=== PATIENT | male | born 1940 | race Caucasian/White ===

== ENCOUNTER 2023-10-26 11:47 | Outpatient (RCR) | payer MEDICARE, SELFPAY | END 2023-10-27 07:42 | disposition home or self-care (01) | LOC: RPT 11:47 | PROVIDERS: ATTENDING PHYSICIAN Family Medicine | DX: I89.0 Lymphedema, not elsewhere classified (principal); Z73.6 Limitation of activities due to disability | CPT/HCPCS: 97140; 97535 ==

== ENCOUNTER 2024-05-26 15:03 | Emergency (ER) | payer MEDICARE, SELFPAY ==
[2024-05-26 15:05] VITALS: BP 141/73
--- NOTE | 2024-05-26 15:58 | ED.GENMED ---
History of Present Illness
General
Chief Complaint: Back Pain
Time Seen by Provider: 05/26/24 15:58
History of Present Illness
History of Present Illness:
TIME OF INITIAL ENCOUNTER: 4 PM
HPI: Patient presents due to right-sided low back pain over the last few days without urinary complaints. There is been no trauma. He started having issues with scoliosis 25 years ago[address] Dailey in the past however given his advanced age was
recommended no further intervention. The pain has more recently worsened.
EXAM:
GENERAL: Well appearing in mild distress, very pleasant
HEENT: Moist oral mucosa
BACK: Marked scoliosis noted, some vague discomfort with palpation over the right CVA
NEUROLOGIC: Excellent strength all extremities, no obvious coordination deficits
PSYCHIATRIC: Appropriate mental status, normal insight and judgement
EXTREMITIES: Nontender, no edema, moves all extremities equally
SKIN: No rash, no lesions
NUMBER AND COMPLEXITY OF PROBLEMS ADDRESSED AT THE ENCOUNTER
� Chronic conditions affecting care: CAD, high blood pressure, constipation, migraines
� Acute Exacerbation and/or Progression of Chronic Illness: This is an acute worsening of chronic problem
� Differential Diagnosis includes: Worsening scoliosis, compression fractures,
AMOUNT AND/OR COMPLEXITY OF DATA TO BE REVIEWED AND ANALYZED
� I performed an independent evaluation of and my interpretation is:
EKG:
CT:
X-rays: X-rays show severe scoliosis along with compression of the vertebral bodies
Laboratory Studies:
Other:
� Review of other/old records: I reviewed records, the patient was admitted here 1 year ago with failure to thrive
� Clinical information was obtained by an independent historian: I spoke to the at bedside
� Prescriptions/Medications Considered but not given:
� Further testing considered but not performed:
RISK OF COMPLICATIONS AND/OR MORBIDITY OR MORTALITY OF PATIENT MANAGEMENT
� Social determinants of health affecting care: Lives at home
� Discussion with other providers:
� Escalation of care including admission/observation vs risk of discharge considered: The patient was given a dose of Vicodin and was observed here.
ANY OTHER UPDATES:
6:15 PM: On reassessment, patient feels markedly improved. Will give very short course of narcotic analgesia and recommended to try MiraLAX to help prevent constipation as well. I suggest that he consider following up with Dr. Dailey again.
Past History
Past History
ED Past Medical History: CAD, HTN, [place], Renal failure (Renal insufficiency, creatinine baseline of 1.7.), Other (Cluster headaches) and Other (Right bundle-branch block)
ED Past Surgical History: Cardiac (PTCA with stent 2015), Cholecystectomy and Orthopedic
Social History
Tobacco: Non-smoker
Alcohol: None
Drug: None
Personal:
Living: with family
Employment: Retired
Family History
Family History: Other (Noncontributory)
Phy Exam
Physical Exam
Physical Exam:
See HPI
Course
Orders/Labs/Results
Orders:
Orders
05/26/24 16:04
Hydrocodone 5/APAP 325 [Penelope 5/325] 1 tablet PO NOW STA
CR Lumbar Spine Comp Min 4 Vw* Urgent
Comment:
Reason For Exam: pain
CR Thoracic Spine 3 Views Urgent
Reason For Exam: pain scoliosis worsening
Vital Signs
Initial and Last Documented VS:
Initial Vital Signs
Temp Pulse Resp BP Pulse Ox
98 F 72 16 141/73 99
05/26/24 15:05 05/26/24 15:05 05/26/24 15:05 05/26/24 15:05 05/26/24 15:05
Last Documented Vital Signs
Temp Pulse Resp BP Pulse Ox
98 F 72 16 141/73 99
05/26/24 15:05 05/26/24 15:05 05/26/24 15:05 05/26/24 15:05 05/26/24 15:05
*Critical Care Note
Total Time (30-74mins, 75-104mins- exclusive of procedures): Not Applicable
ED Attending Note
-
Portions of this chart may have been created with voice recognition software.� Occasional wrong word or��sound alike� substitutions may have occurred due to the inherent limitations of voice recognition software.
Discharge Plan
Departure
Patient Disposition: Home (Routine Discharge)
Date of Disposition: 05/26/24
Time of Disposition: 18:10
Patient with high blood pressure during this ER visit?: Yes
Discharge Problem:
Scoliosis
Instructions: Low Back Pain (DC)
Prescriptions:
New
hydrocodone-acetaminophen 5-325 mg tablet
1 tab PO HS PRN (Reason: Pain) Qty: 7 0RF
No Action
levetiracetam 500 MG tablet
500 mg PO TID
atorvastatin 40 MG tablet
40 mg PO HS
metoprolol tartrate 100 mg Tablet
100 mg PO BID
aspirin 81 mg Tablet,Delayed Release (Dr/Ec)
81 mg PO DAILY
losartan 25 mg Tablet
25 mg PO DAILY
hydralazine 50 mg Tablet
50 mg PO TID
verapamil 180 MG tablet extended release
180 mg PO BID
docusate sodium 100 mg Capsule
100 mg PO BID Qty: 0 0RF
polyethylene glycol 3350 [HealthyLax] 17 gram Powder In Packet
17 g PO DAILY Qty: 0 0RF
sennosides [Senna Lax] 8.6 mg Tablet
17.2 mg PO BID Qty: 0 0RF
cephalexin 500 mg capsule
500 mg PO QID Qty: 20 0RF
Referrals:
Celestine Dailey MD [Active] - Follow up in 2-3 days
Aron Beckman MD [Family Provider] -
Activity Restrictions/Additional Instructions:
I sent a prescription to your pharmacy for a very short course of Vicodin. I recommend just taking this no more than once a day perhaps at nighttime to help sleep. If you take it consider taking something like MiraLAX to help prevent constipation.
Interventions
Interventions:
*Risk Screen - Suicide Last Done: 05/26/24 15:07
*General Assessment Last Done: 05/26/24 16:29
*Neglect/Abuse Screening Last Done: 05/26/24 15:07
*ED COVID-19 Vaccine History Last Done: 05/26/24 16:29
ED-Musculoskeletal Assessment Last Done: 05/26/24 16:30
Discharge Date and Time
Print Language: MALAGASY
[2024-05-26] MEDS: NORCO 5/325 1 TABLET PO (16:26)
[2024-05-26 16:28] VITALS: BMI 28.1
[2024-05-26 18:41] VITALS: BP 174/79
== END 2024-05-26 18:42 | disposition home or self-care (01) ==
LOC: EMR 15:03
PROVIDERS: EMERGENCY PHYSICIAN Emergency Medicine; FAMILY PHYSICIAN Family Medicine
DX: M41.9 Scoliosis, unspecified (principal); I25.10 Atherosclerotic heart disease of native coronary artery without angina pectoris; I10 Essential (primary) hypertension; Z90.49 Acquired absence of other specified parts of digestive tract; Z95.5 Presence of coronary angioplasty implant and graft
CPT/HCPCS: 99283; 72072; 72110

== ENCOUNTER 2024-12-19 05:44 | Emergency (ER) | payer MEDICARE, SELFPAY ==
[2024-12-19 05:46] VITALS: BP 148/90
--- NOTE | 2024-12-19 06:07 | ED.GENMED ---
History of Present Illness
General
Chief Complaint: Swallowing Problem
Source: patient and spouse
Time Seen by Provider: 12/19/24 05:59
History of Present Illness
History of Present Illness:
This patient is a very pleasant 84-year-old male presents emergency department with a sensation of feeling like the 3 pills that he took at 11 PM are 'caught'. He points to the lower throat area. He has been drinking and feels like it is hard to
swallow, this has not resolved his symptoms. He denies nausea, vomiting, drooling, change in voice, chest pain, shortness of breath, abdominal pain. He states that these pills are the same 3 pills that he has been taking at night for years.
Patient denies other complaints.
Past History
Past History
ED Past Medical History: CAD, HTN, [place], Renal failure (Renal insufficiency, creatinine baseline of 1.7.), Other (Cluster headaches) and Other (Right bundle-branch block, scoliosis)
ED Past Surgical History: Cardiac (PTCA with stent 2016), Cholecystectomy and Orthopedic
Social History
Tobacco: Non-smoker
Alcohol: None
Drug: None
Personal:
Living: with family
Employment: Retired
Family History
Family History: Other (Noncontributory)
Phy Exam
Physical Exam
Physical Exam:
GENERAL: Alert , in no apparent distress
EYE: pupils equal and reactive
NECK: Supple, no significant adenopathy.
ENT: o/p clr, mm slightly dry, no trismus, no drool, voice clear.
CARDIAC: Regular rate and rhythm .
LUNGS: Clear breath sounds bilaterally, no acute respiratory distress, no wheezes/rales/rhonchi
ABDOMEN: Soft, without focal tenderness, no r/g, no cvat
NEUROLOGICAL: Alert and oriented, no focal neuro deficits
SKIN: Warm and dry, skin intact.
MUSCULOSKELETAL: No edema, well perfused.
PSYCH: Normal and appropriate interaction.
Course
Orders/Labs/Results
Orders:
Orders
12/19/24 06:43
Mag Hydrox/Al Hydrox/Simeth [Maalox] 30 ml Phenobarb/Hyoscy/Atropine/Scop [] 10 ml Viscous Lidocaine 2% [Xylocaine Viscous Cup] 10 ml PO NOW
12/19/24 06:57
Mag Hydrox/Al Hydrox/Simeth [Maalox] 30 ml .ROUTE .STK-MED ONE
Phenobarb/Hyoscy/Atropine/Scop [] 10 ml .ROUTE .STK-MED ONE
12/19/24 06:58
Viscous Lidocaine 2% [Xylocaine Viscous Cup] 15 ml .ROUTE .STK-MED ONE
12/19/24 07:11
Glucagon [GlucaGen] 1 mg IV NOW STA
Pantoprazole [Protonix IV] 40 mg IV NOW STA
12/19/24 08:20
RF Esophagus-Single Contrast Urgent
Comment:
Reason For Exam: feels pills are stuck
Vital Signs
Initial and Last Documented VS:
Initial Vital Signs
Temp Pulse Resp BP Pulse Ox
97.4 F 68 22 148/90 97
12/19/24 05:46 12/19/24 05:46 12/19/24 05:46 12/19/24 05:46 12/19/24 05:46
Last Documented Vital Signs
Temp Pulse Resp BP Pulse Ox
97.4 F 68 22 177/96 97
12/19/24 05:46 12/19/24 05:46 12/19/24 05:46 12/19/24 09:00 12/19/24 09:15
*Critical Care Note
Total Time (30-74mins, 75-104mins- exclusive of procedures): Not Applicable
Update Note
Update Note:
Patient presents to the Emergency Department with __sensation of retained pills
Number and Complexity of Problems Addressed at the Encounter
� Chronic conditions affecting care:
� Acute Exacerbation and/or Progression of Chronic Illness:
� Differential Diagnosis includes: But not limited to retained pills, pill related esophagitis, etc. etc.
Amount and/or Complexity of Data to be Reviewed and Analyzed
� I performed an independent evaluation of and my interpretation is:
EKG:
CT:
Xrays:
Laboratory Studies:
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
No persistent or reproducible filling defects are identified to indicate retained foreign body within the cervical or thoracic esophagus. No obstruction to passage of liquid barium.
At the level of the gui, a small group of localized traction diverticula are noted measuring up to 1 cm.
There is a large hiatal hernia which is incompletely evaluated. The stomach is underdistended. There is short segment stenosis at the gastroesophageal junction, with maximum perceived luminal diameter of 2.5 mm.
� Review of other/old records reveals:
� Clinical information was obtained by an independent historian: who is bedside
� Prescriptions/Medications Considered but not given:
� Further testing considered but not performed:
Risk of Complications and/or Morbidity or Mortality of Patient Management
� Social determinants of health affecting care:
� Discussion with other providers (PCP, Hospitalists, Consultants, etc):
� Escalation of care including admission/observation vs risk of discharge considered: Case discussed with GI, aware of history and physical. Of note, patient still feels symptoms despite PPI, GI cocktail, and glucagon 1 mg.
Recommendation is to obtain an esophagram. Patient updated and agreeable to this.
11:05 AM patient feels better, no new complaints, swallowing without difficulty. Esophagram with reviewed with him and his , I ashley a photo on the grease board as well explaining these findings. Case also discussed with GI. I will start him
on a PPI as well as Carafate for 2 weeks, outpatient GI follow-up, discussed with him importance of follow-up and reasons to return to the ER.
ED Attending Note
-
Portions of this chart may have been created with voice recognition software.� Occasional wrong word or��sound alike� substitutions may have occurred due to the inherent limitations of voice recognition software.
Discharge Plan
Departure
Patient with high blood pressure during this ER visit?: Yes
Condition: Good
Discharge Problem:
Esophageal hiatal hernia
Instructions: Dysphagia (DC), BLOOD PRESSURE
Prescriptions:
New
pantoprazole [Protonix] 40 mg tablet,delayed release (DR/EC)
40 mg PO DAILY Qty: 30 0RF
sucralfate [Carafate] 100 mg/mL suspension
10 ml PO QID Qty: 560 0RF
No Action
levetiracetam 500 MG tablet
500 mg PO TID
atorvastatin 40 MG tablet
40 mg PO HS
metoprolol tartrate 100 mg Tablet
100 mg PO BID
aspirin 81 mg Tablet,Delayed Release (Dr/Ec)
81 mg PO DAILY
losartan 25 mg Tablet
25 mg PO DAILY
hydralazine 50 mg Tablet
50 mg PO TID
verapamil 180 MG tablet extended release
180 mg PO BID
docusate sodium 100 mg Capsule
100 mg PO BID Qty: 0 0RF
polyethylene glycol 3350 [HealthyLax] 17 gram Powder In Packet
17 g PO DAILY Qty: 0 0RF
sennosides [Senna Lax] 8.6 mg Tablet
17.2 mg PO BID Qty: 0 0RF
cephalexin 500 mg capsule
500 mg PO QID Qty: 20 0RF
hydrocodone-acetaminophen 5-325 mg tablet
1 tab PO HS PRN (Reason: Pain) Qty: 7 0RF
Referrals:
Yvette Henderson MD [Active] - Follow up in 1 week
Aron Beckman MD [Family Provider] -
Activity Restrictions/Additional Instructions:
IF YOU DEVELOP CHEST PAIN, TROUBLE BREATHING, TROUBLE SWALLOWING, THROAT PAIN, THE FEELING THAT SOMETHING IS STUCK IN YOUR THROAT, OR OTHER WORRISOME SIGNS, GO TO THE ER IMMEDIATELY!
Interventions
Interventions:
*Risk Screen - Suicide Last Done: 12/19/24 05:46
*General Assessment Last Done: 12/19/24 06:59
*Neglect/Abuse Screening Last Done: 12/19/24 05:46
*ED- Fall Risk Assessment Last Done: 12/19/24 06:59
*ED COVID-19 Vaccine History Last Done: 12/19/24 06:59
ED-EENT Assessment Last Done: 12/19/24 07:04
MS-Goaoic-Zntrvxuqvn Assessment Last Done: 12/19/24 06:59
ED- Pulmonary Assessment Last Done: 12/19/24 06:59
ED- Neurological Assessment Last Done: 12/19/24 06:59
ED Swallowing Screen Last Done: 12/19/24 07:04
Discharge Date and Time
Print Language: IRISH
[2024-12-19 06:59] VITALS: BMI 27.0
[2024-12-19] MEDS: MAALOX 50 PO (06:59)
[2024-12-19] MEDS: PROTONIX IV 40 MG IV (07:18)
[2024-12-19] MEDS: GlucaGen 1 MG IV (07:26)
[2024-12-19 08:00] VITALS: BP 171/88
[2024-12-19 09:00] VITALS: BP 177/96
[2024-12-19 11:14] VITALS: BP 162/92
--- NOTE | 2024-12-19 11:24 | ED.GENMED ---
History of Present Illness
General
Chief Complaint: Swallowing Problem
Time Seen by Provider: 12/19/24 05:59
Past History
Past History
ED Past Medical History: CAD, HTN, [place], Renal failure (Renal insufficiency, creatinine baseline of 1.7.), Other (Cluster headaches) and Other (Right bundle-branch block, scoliosis)
ED Past Surgical History: Cardiac (PTCA with stent 2016), Cholecystectomy and Orthopedic
Social History
Tobacco: Non-smoker
Alcohol: None
Drug: None
Personal:
Living: with family
Employment: Retired
Family History
Family History: Other (Noncontributory)
Course
Orders/Labs/Results
Orders:
Orders
12/19/24 06:43
Mag Hydrox/Al Hydrox/Simeth [Maalox] 30 ml Phenobarb/Hyoscy/Atropine/Scop [] 10 ml Viscous Lidocaine 2% [Xylocaine Viscous Cup] 10 ml PO NOW
12/19/24 06:57
Mag Hydrox/Al Hydrox/Simeth [Maalox] 30 ml .ROUTE .STK-MED ONE
Phenobarb/Hyoscy/Atropine/Scop [] 10 ml .ROUTE .STK-MED ONE
12/19/24 06:58
Viscous Lidocaine 2% [Xylocaine Viscous Cup] 15 ml .ROUTE .STK-MED ONE
12/19/24 07:11
Glucagon [GlucaGen] 1 mg IV NOW STA
Pantoprazole [Protonix IV] 40 mg IV NOW STA
12/19/24 08:20
RF Esophagus-Single Contrast Urgent
Comment:
Reason For Exam: feels pills are stuck
Vital Signs
Initial and Last Documented VS:
Initial Vital Signs
Temp Pulse Resp BP Pulse Ox
97.4 F 68 22 148/90 97
12/19/24 05:46 12/19/24 05:46 12/19/24 05:46 12/19/24 05:46 12/19/24 05:46
Last Documented Vital Signs
Temp Pulse Resp BP Pulse Ox
97.4 F 68 22 177/96 97
12/19/24 05:46 12/19/24 05:46 12/19/24 05:46 12/19/24 09:00 12/19/24 09:15
ED Attending Note
-
Portions of this chart may have been created with voice recognition software.� Occasional wrong word or��sound alike� substitutions may have occurred due to the inherent limitations of voice recognition software.
Discharge Plan
Departure
Patient Disposition: Home (Routine Discharge)
Date of Disposition: 12/19/24
Time of Disposition: 11:24
Patient with high blood pressure during this ER visit?: Yes
Condition: Good
Discharge Problem:
Esophageal hiatal hernia
Instructions: Dysphagia (DC), BLOOD PRESSURE
Prescriptions:
New
pantoprazole [Protonix] 40 mg tablet,delayed release (DR/EC)
40 mg PO DAILY Qty: 30 0RF
sucralfate [Carafate] 100 mg/mL suspension
10 ml PO QID Qty: 560 0RF
No Action
levetiracetam 500 MG tablet
500 mg PO TID
atorvastatin 40 MG tablet
40 mg PO HS
metoprolol tartrate 100 mg Tablet
100 mg PO BID
aspirin 81 mg Tablet,Delayed Release (Dr/Ec)
81 mg PO DAILY
losartan 25 mg Tablet
25 mg PO DAILY
hydralazine 50 mg Tablet
50 mg PO TID
verapamil 180 MG tablet extended release
180 mg PO BID
docusate sodium 100 mg Capsule
100 mg PO BID Qty: 0 0RF
polyethylene glycol 3350 [HealthyLax] 17 gram Powder In Packet
17 g PO DAILY Qty: 0 0RF
sennosides [Senna Lax] 8.6 mg Tablet
17.2 mg PO BID Qty: 0 0RF
cephalexin 500 mg capsule
500 mg PO QID Qty: 20 0RF
hydrocodone-acetaminophen 5-325 mg tablet
1 tab PO HS PRN (Reason: Pain) Qty: 7 0RF
Referrals:
Yvette Henderson MD [Active] - Follow up in 1 week
Aron Beckman MD [Family Provider] -
Activity Restrictions/Additional Instructions:
IF YOU DEVELOP CHEST PAIN, TROUBLE BREATHING, TROUBLE SWALLOWING, THROAT PAIN, THE FEELING THAT SOMETHING IS STUCK IN YOUR THROAT, OR OTHER WORRISOME SIGNS, GO TO THE ER IMMEDIATELY!
Interventions
Interventions:
*Risk Screen - Suicide Last Done: 12/19/24 05:46
*General Assessment Last Done: 12/19/24 06:59
*Neglect/Abuse Screening Last Done: 12/19/24 05:46
*ED- Fall Risk Assessment Last Done: 12/19/24 06:59
*ED COVID-19 Vaccine History Last Done: 12/19/24 06:59
ED-EENT Assessment Last Done: 12/19/24 07:04
QM-Jqibhz-Fwqrffwxez Assessment Last Done: 12/19/24 06:59
ED- Pulmonary Assessment Last Done: 12/19/24 06:59
ED- Neurological Assessment Last Done: 12/19/24 06:59
ED Swallowing Screen Last Done: 12/19/24 07:04
Discharge Date and Time
Print Language: GUATEMALAN
== END 2024-12-19 11:34 | disposition home or self-care (01) ==
LOC: EMR 05:44
PROVIDERS: EMERGENCY PHYSICIAN Emergency Medicine; FAMILY PHYSICIAN Family Medicine
DX: K44.9 Diaphragmatic hernia without obstruction or gangrene (principal); I10 Essential (primary) hypertension; I25.10 Atherosclerotic heart disease of native coronary artery without angina pectoris; Z90.49 Acquired absence of other specified parts of digestive tract; Z95.5 Presence of coronary angioplasty implant and graft
CPT/HCPCS: 96374; 96375; 99284; 74220; J1610

== ENCOUNTER 2025-07-17 09:23 | Inpatient (IN) | payer MEDICARE, SELFPAY ==
[2025-07-13 23:32] VITALS: BP 114/84
[2025-07-13 23:38] VITALS: BP 114/84; BMI 23.9
[2025-07-14] VITALS (21 sets, daily range): BP systolic 113–143; BP diastolic 70–90; BMI 22.1
[2025-07-14 00:51] LABS: ALT (SGPT) 11 U/L (0-50); AST (SGOT) 22 U/L (17-59); Albumin 2.9 g/dl (3.5-5.0); Alkaline Phosphatase 93 U/L (38-126); Blood Urea Nitrogen 37 mg/dl (9-20); Calcium 8.5 mg/dl (8.4-10.2); Carbon Dioxide 22 mmol/L (22-30); Chloride 109 mmol/L (98-107); Estimated Creatinine Clearance 28 ml/min; Glucose 102 mg/dl (70-99); Lipase 892 U/L (23-300); Potassium 4.3 mmol/L (3.5-5.1); Sodium 137 mmol/L (135-145); Total Protein 5.7 g/dl (6.3-8.2); eGFR 42.49
[2025-07-14 01:02] LABS: Hematocrit 27.3 % (39.0-52.0); Hemoglobin 8.6 g/dL (13.0-18.0); Mean Corp Hgb Conc. 31.5 g/dL (33.0-37.0); Mean Corpuscular Volume 97.2 fL (80.0-94.0); Nucleated Red Blood Cells % 0 % (-); Platelet Count 201 10^3/uL (130-400); Red Cell Dist. Width 19.0 % (11.5-14.5)
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
[2025-07-14 02:06] LABS: Troponin I 0.066 ng/ml
[2025-07-14] MEDS: MORPHINE SULFATE 2 MG IV (03:04)
[2025-07-14] MEDS: ZOSYN 50 IV ×4 (03:05→22:04)
[2025-07-14] MEDS: ASPIRIN 325 MG PO (03:10)
--- NOTE | 2025-07-14 03:53 | HPS.HSE ---
Family Physician
-
Family Physician: NOT KNOW UNKNOWN - PT DOES
Chief Complaint
-
Abdominal pain
History of Present Illness
This is a 84-year-old male with past medical history significant for CAD status post OR, hypertension, GERD, CKD, BPH seizure , disorder presenting to the emergency department with episode of abdominal pain.
Patient well alert and orient x 3: No known give extensive history. It appears that he arrived from questions sent and he has been there since July 09 after he was discharged from [facility]. He is not clear why he was at [facility] however is diagnosis from [facility] indicates new episode of urinary retention in addition to dysphagia (oropharyngeal phase, anxiety disorder and abnormal levels of serum enzymes. Patient apparently had also an episode of acute respiratory
failure with hypoxia. He was discharged with a urinary cath and patient states that he is pending voiding trial. He reports having severe epigastric pain with nausea but no vomiting. He denies any radiation into his neck jaws or back. He denies
having any diarrhea. He denies any melena or hematochezia. Due to persistent discomfort patient was brought to the emergency department. While in the emergency department he did receive analgesics with improvement in his symptoms.
In the emergency department patient was afebrile, blood pressure of 130/90 with a pulse of 104 with an oxygen saturation of 97% on room air. ECG shows sinus tachycardia at a rate of 105 with PACs, known right bundle and a new left anterior
fascicular block. The troponin was 0.06.
Patient had an elevated lipase of 892 otherwise LFTs were normal. CBC shows a hemoglobin of 8.6 which is similar to his levels in 2022. Electrolytes were normal. BUN and creatinine were same as before at 32 and 1.6 with a glucose of 102.
CT of the abdomen pelvis showing moderate amount of stool in the colon and rectum reflecting constipation and fecal impaction. No small bowel obstruction.-Extensive central mesenteric edema. There is cholecystectomy with associated biliary ductal
dilation. No pancreatic findings.
The base of the lungs there is dense consolidation in the right lower lobe, tree-in-bud nodularity in the right middle lobe concerning for multilobar pneumonia or aspiration.
Medical History
Past Medical History
Past Medical History: Reports Other (CAD, HTN, OR, Renal failure (Renal insufficiency, creatinine baseline of 1.7.), Other (Cluster headaches) and Other (Right bundle-branch block))
Past Surgical History: Reports Other ( Cardiac (PTCA with stent 2016), Cholecystectomy and Orthopedic)
Social History
Tobacco: Non-smoker
Alcohol: None
Drug: None
Personal:
Living: With Family
Family History
Family History: Not pertinent
Allergies / Home Medications
Allergies reflects when Allergies were last updated in [employer]This.
Home Medications with original date entered in [employer]This
Allergy/Medication List:
Allergies
Allergy/AdvReac Type Severity Reaction Status Date / Time
No Known Allergies Allergy Verified 07/01/21 11:37
Home Medications
levetiracetam 500 mg tablet 500 mg PO TID Seizures 10/10/18
Imitrex 25 mg PO DAILYPRN PRN headaches 07/01/21
aspirin 81 mg chewable tablet 81 mg PO DAILY Blood clot prevention/tx 07/01/21
atorvastatin 40 mg tablet 40 mg PO HS High cholesterol 07/01/21
losartan 100 mg tablet (Cozaar) 100 mg PO DAILY Blood pressure 07/01/21
acetaminophen 300 mg-codeine 30 mg tablet 1 tab PO Q4HPRN PRN moderate to severe back pain 7 days #28 tabs 07/04/21
doxepin 25 mg capsule 75 mg PO HS 07/04/21
metoprolol tartrate 100 mg tablet 150 mg PO BID Blood pressure ##0 07/04/21
pantoprazole 40 mg tablet,delayed release 40 mg PO BID 30 days #60 tabs 07/04/21
sucralfate 100 mg/mL oral suspension 1 gm PO ACHS 15 days #600 mL 07/04/21
verapamil 180 mg tablet,extended release 360 mg PO DAILY Blood pressure ##0 07/04/21
Review of Systems
-
Constitutional: Reports No Symptoms
EENT: Reports No Symptoms
Respiratory: Reports No Symptoms
Cardiac: Reports No Symptoms and Chest Pain
Abdomen/GI: Reports Abdominal Pain
: Reports No Symptoms
Musculoskeletal: Reports No Symptoms
Skin: Reports No Symptoms
Neurological: Reports No Symptoms
Endocrine: Reports No Symptoms
Hematologic/Lymphatic: Reports No Symptoms
Psych: Reports No Symptoms
Physical Exam
Vital Signs
Vital Signs
Temp Pulse Resp BP Pulse Ox
98.7 F 104 17 138/90 97
07/13/25 23:38 07/14/25 03:00 07/14/25 03:00 07/14/25 02:55 07/14/25 02:45
Physical Exam
General: Well Developed, Well Nourished and No Apparent Distress
HEENT: NormoCephalic, Moist mucous membranes and Atraumatic
Respiratory: Clear
Cardiac: S1/S2 and Regular Rhythm; No Murmur or Rub
GI: Soft, Non Tender, Non Distended and Normal Bowel Sounds; No Organomegaly
Rectal: Deferred by Provider
Genito-urinary: Clear Urine and Weathers
Musculoskeletal: No Clubbing, No Cyanosis and No Edema
Skin: No Rash
Neuro: AO x 3 and Nonfocal/grossly intact
Psych: Calm
Laboratory Results
-
07/14/25 00:28
07/14/25 00:28
Laboratory Results
Lactic Acid 1.1 mmol/L (0.7-2.0) 07/14/25 02:54
Total Bilirubin 0.4 mg/dl (0.2-1.3) 07/14/25 00:28
AST 22 U/L (17-59) 07/14/25 00:28
ALT 11 U/L (0-50) 07/14/25 00:28
Alkaline Phosphatase 93 U/L (38-126) 07/14/25 00:28
Troponin I 0.066 ng/ml H* 07/14/25 01:29
Lipase 892 U/L (23-300) H 07/14/25 00:28
Data Reviewed
-
CT Scan: Report Reviewed by me
Medical Tests (Nuc Med, Echo, EKG etc): Image Personally Visualized and interpreted
Lab Data: Labs Reviewed by me
Old Records: Reviewed
Impression/Plan
-
IMPRESSION:
84-year-old with history of CAD status post OR, hypertension, hyperlipidemia, GERD, seizure disorder presenting to the emergency department with acute episode of abdominal pain that lasted for several hours. In the emergency department patient
responded to morphine. When his troponin was checked it was elevated at 0.06. He is currently pain-free. Incidental findings on CT of the abdomen pelvis shows multifocal pneumonia on the right base concerning for aspiration. Patient is afebrile
and has no leukocytosis or hypoxia.
PLAN:
Epigastric pain -patient described persistent epigastric pain prior to arrival in the emergency department. Was found to have elevated troponin of 0.06 in the ED. Concerning for ACS. Patient however has tenderness to palpation in epigastric
region, elevated lipase as well as right lower lobe infiltrates concerning for pneumonia. Patient does not drink alcohol. Does have a history of cholecystectomy. LFTs unremarkable. Not clear on any recent antibiotics and given his presentation
at [facility]
� Will admit to telemetry observation for now
� With concerning for ACS he received aspirin, will hold on heparin
� Trend troponin, will start heparin if troponin is rising rapidly
� Suspect troponin elevation may be secondary to underlying pneumonia/pancreatitis
� Pancreatitis may be secondary to gallstones despite cholecystectomy or secondary to interstitial pancreatitis from drugs (no GLP-1 agonist used)
� N.p.o. for now
� Pain control and antiemetics
� Trend LFTs
� Obtain records from [facility]
Multifocal infiltrates�multifocal infiltrates concerning for aspiration and patient does appear to have a diagnosis of dysphagia. He denies any vomiting. There is no cough. He denies any vomiting. He denies any shortness of breath. There is no
hypoxia. Diagnosis from the SNF indicates acute respiratory failure with hypoxia so this may be findings secondary to prior pneumonia
� Obtain records from [facility] to see if he had pneumonia at that time
� Will continue with IV Zosyn for now pending records
� Speech and swallow eval for aspiration
� As needed nebs
Seizure disorder
� Continue Keppra
CAD�currently chest pain-free, troponin 0.066 consider nonischemic myocardial injury secondary to pancreatitis or pneumonia
� Continue aspirin 81
� Continue metoprolol 12.5 twice daily with hold parameters
� Continue statin
� Continue losartan 25 mg daily with hold parameters
BPH/urinary retention -status post indwelling cath awaiting voiding trial
� Continue tamsulosin
Monitor ins and outs
DVT prophylaxis�heparin subcu
CODE STATUS�DNR
[2025-07-14 04:57] LABS: Troponin I 0.066 ng/ml
[2025-07-14] MEDS: LR 1000 IV ×2 (06:15→18:15)
[2025-07-14 06:36] LABS: Hematocrit 22.1 % (39.0-52.0); Hemoglobin 7.2 g/dL (13.0-18.0); Mean Corp Hgb Conc. 32.6 g/dL (33.0-37.0); Mean Corpuscular Volume 96.9 fL (80.0-94.0); Platelet Count 166 10^3/uL (130-400); Red Cell Dist. Width 18.8 % (11.5-14.5)
[2025-07-14 06:38] LABS: ALT (SGPT) < 10 U/L (0-50); AST (SGOT) 18 U/L (17-59); Albumin 2.3 g/dl (3.5-5.0); Alkaline Phosphatase 76 U/L (38-126); Blood Urea Nitrogen 35 mg/dl (9-20); Calcium 8.1 mg/dl (8.4-10.2); Carbon Dioxide 21 mmol/L (22-30); Chloride 111 mmol/L (98-107); Estimated Creatinine Clearance 30 ml/min; Glucose 87 mg/dl (70-99); Lipase 598 U/L (23-300); Potassium 4.3 mmol/L (3.5-5.1); Sodium 135 mmol/L (135-145); Total Protein 5.0 g/dl (6.3-8.2); eGFR 45.91
[2025-07-14] MEDS: LOPRESSOR 12.5 MG PO ×2 (08:30→20:24)
[2025-07-14] MEDS: PROTONIX IV 40 MG IV (08:31)
[2025-07-14] MEDS: KEPPRA 500 MG PO ×3 (08:31→22:05)
[2025-07-14] MEDS: NSS (PRESERVATIVE FREE) 10 ML IV (08:31)
[2025-07-14] MEDS: SENOKOT 17.2 MG PO (08:32)
[2025-07-14] MEDS: FLOMAX 0.4 MG PO (08:32)
[2025-07-14] MEDS: COLACE 100 MG PO (08:32)
[2025-07-14] MEDS: COZAAR 25 MG PO (08:33)
[2025-07-14] MEDS: HEPARIN 5000 UNITS SC ×2 (08:34→16:10)
[2025-07-14] MEDS: MIRALAX 17 GRAMS PO ×2 (08:34→20:25)
[2025-07-14] MEDS: LIDOCAINE 4% PATCH 1 PATCH TOPICAL (08:34)
--- NOTE | 2025-07-14 09:40 | PTOTSP ---
Speech Therapy Evaluation
Pt seen for bedside swallow assessment. Pt managed regular solids with adequate mastication, transfer, and clearance. No overt s/sx of aspiration with regular solids or thin liquids. Cannot rule out silent aspiration at bedside. Pt at an increased
risk of aspiration given PMH GERD and recent results of abdomen CT (dense consolidation in the right lower lobe).�Pt is on room air with low WBC (4.5).
Recommend:�
1. IDDSI 7 regular solids and IDDSI 0 thin liquids
2. Medication as best tolerated
3. Standard aspiration precautions
4. CLASSICS PROFESSOR to f/up, likely briefly
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
--- NOTE | 2025-07-14 17:19 | W.PN.UPDATE ---
Update Note
Progress Note Update
Epigastric pain with a CT that did not demonstrate pancreatitis
Lipase minimally elevated 800s now down to 500s along with epigastric pain we will treat as acute pancreatitis
IV fluids trend LFTs
GI consult
CKD stage IIIb likely related to polycystic kidney disease
Avoid nephrotoxins
Monitor urinary output
Metabolic acidosis
Likely secondary to hyperchloremia
Expect to improve elevated troponin
Type II demand ischemia likely related to pneumonia and CKD stage IIIb
Troponin stable
Outpatient follow-up
Constipation
Aggressive bowel regimen
[2025-07-14] MEDS: SENOKOT-S 1 TABLET PO (20:24)
[2025-07-14] MEDS: LIPITOR 40 MG PO (22:05)
[2025-07-15] MEDS: HEPARIN 5000 UNITS SC ×4 (00:46→23:27)
[2025-07-15] MEDS: DUONEB 3 ML INH (02:47)
[2025-07-15 03:48] VITALS: BP 145/85
[2025-07-15 03:51] VITALS: BMI 22.8
[2025-07-15] MEDS: ZOSYN 50 IV ×4 (03:56→21:02)
[2025-07-15] MEDS: LR 1000 IV ×2 (06:13→20:53)
[2025-07-15 06:24] VITALS: BMI 22.7
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
[2025-07-15 07:00] VITALS: BP 138/76
[2025-07-15] MEDS: NSS (PRESERVATIVE FREE) 10 ML IV ×2 (08:23→20:59)
[2025-07-15] MEDS: LOPRESSOR 12.5 MG PO ×2 (08:24→20:59)
[2025-07-15] MEDS: PROTONIX IV 40 MG IV ×2 (08:24→20:59)
[2025-07-15] MEDS: SENOKOT 17.2 MG PO (08:24)
[2025-07-15] MEDS: SENOKOT-S 1 TABLET PO ×2 (08:24→20:59)
[2025-07-15] MEDS: FLOMAX 0.4 MG PO (08:24)
[2025-07-15] MEDS: COZAAR 25 MG PO (08:24)
[2025-07-15] MEDS: KEPPRA 500 MG PO ×3 (08:24→20:59)
[2025-07-15] MEDS: LOW STRENGTH ASPIRIN 81 MG PO (08:25)
[2025-07-15] MEDS: MIRALAX PO ×2 (08:31→20:58)
[2025-07-15] MEDS: LIDOCAINE 4% PATCH TOPICAL (08:33)
[2025-07-15 10:33] LABS: Iron 34 ug/dl (49-181)
[2025-07-15 10:42] LABS: Total Iron Binding Capacity 187 ug/dl (261-462)
[2025-07-15 11:00] VITALS: BP 108/69
[2025-07-15 11:09] LABS: Ferritin 54.0 ng/ml (17.9-464.0)
--- NOTE | 2025-07-15 11:42 | CM ---
Call received from Mariluz at [facility]; patient will return there at discharge. Mariluz advised that Benjamin is not medically cleared for return today. CM will continue to follow to coordinate return to [facility] when medically ready.
[facility] Report: [phone]
[facility]
--- NOTE | 2025-07-15 12:42 | W.PN.HOSP.TC ---
Today's Communication/Plan
-
Assessment / Plan
Assessment / Plan
Epigastric pain with a CT that did not demonstrate pancreatitis
Lipase minimally elevated 800s now down to 500s along with epigastric pain we will treat as acute pancreatitis, PUD
IV fluids trend LFTs
MRCP
IV twice daily PPI
GI consult
CKD stage IIIb likely related to polycystic kidney disease
Avoid nephrotoxins
Monitor urinary output
Retention
Weathers catheter�indwelling, present on admission
Metabolic acidosis
Likely secondary to hyperchloremia
Expect to improve elevated troponin
Type II demand ischemia likely related to pneumonia and CKD stage IIIb
Troponin stable
Outpatient follow-up
Constipation
Aggressive bowel regimen
Anticipated Discharge: > 48 hours
Subjective/Interval History
-
Date of Service: July 15, 2025
Seen and examined. No new complaints. No acute overnight events.
Objective Data
-
Vital Signs:
Vital Signs
Temp Pulse Resp BP Pulse Ox
98.3 F 83 12 108/69 98
07/15/25 11:00 07/15/25 11:00 07/15/25 11:00 07/15/25 11:00 07/15/25 11:00
I&O
07/14/25 07/15/25 07/16/25
06:59 06:59 06:59
Output Total 1425 / 1425
Balance -1425 / -1425
Physical Exam
-
General: Well Nourished and No Apparent Distress
HEENT: Normocephalic and Atraumatic
Respiratory: Clear to Auscultation
Cardiac: Regular Rhythm
GI: Soft, Nontender and Nondistended
Genito-urinary: No Costovertebral Tender, Clear Urine and Weathers
Musculoskeletal: No Clubbing, No Cyanosis and No Edema
Skin: Warm and Dry
Neuro: Awake and AO x 3
[2025-07-15 15:00] VITALS: BP 156/91
[2025-07-15 19:20] VITALS: BP 124/82
[2025-07-15] MEDS: LIPITOR 40 MG PO (20:59)
[2025-07-15 23:10] VITALS: BP 138/84
[2025-07-16 03:10] VITALS: BP 144/89
[2025-07-16] MEDS: ZOSYN 50 IV ×4 (03:53→21:10)
[2025-07-16] MEDS: TYLENOL 650 MG PO (05:37)
[2025-07-16 06:00] VITALS: BMI 23.4
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
[2025-07-16 08:30] VITALS: BP 129/58
[2025-07-16] MEDS: LOPRESSOR 12.5 MG PO (08:42)
[2025-07-16] MEDS: FLOMAX 0.4 MG PO (08:42)
[2025-07-16] MEDS: SENOKOT 17.2 MG PO (08:42)
[2025-07-16] MEDS: LOW STRENGTH ASPIRIN 81 MG PO (08:42)
[2025-07-16] MEDS: COZAAR 25 MG PO (08:42)
[2025-07-16] MEDS: KEPPRA 500 MG PO ×3 (08:42→21:10)
[2025-07-16] MEDS: SENOKOT-S 1 TABLET PO ×2 (08:42→21:10)
[2025-07-16] MEDS: HEPARIN 5000 UNITS SC ×3 (08:43→23:32)
[2025-07-16] MEDS: NSS (PRESERVATIVE FREE) 10 ML IV ×2 (08:43→21:11)
[2025-07-16] MEDS: PROTONIX IV 40 MG IV ×2 (08:43→21:11)
[2025-07-16] MEDS: LIDOCAINE 4% PATCH TOPICAL (08:43)
[2025-07-16] MEDS: MIRALAX PO ×2 (08:51→21:06)
--- NOTE | 2025-07-16 10:48 | CM ---
Pt under observation .
Spoek with Mariluz at [facility] he had a 3 days stay a [facility] so he qualifies for return to SNF.
[facility] Referral placed
[facility]
Report: [phone]

PLAN Return to [facility] SN[facility]
[2025-07-16 11:35] VITALS: BP 110/64
--- NOTE | 2025-07-16 14:10 | W.PN.HOSP.TC ---
Today's Communication/Plan
-
Assessment / Plan
Assessment / Plan
Epigastric pain with a CT that did not demonstrate pancreatitis
Lipase minimally elevated 800s now down to 500s along with epigastric pain we will treat as acute pancreatitis, PUD
IV fluids trend LFTs
MRCP, claustrophobic, premedicate with ativan oral 30mins prior
IV twice daily PPI
GI consult
CKD stage IIIb likely related to polycystic kidney disease
Avoid nephrotoxins
Monitor urinary output
Retention
Weathers catheter�indwelling, present on admission
PVC and bigeminy
Check lytes, replete prn
Increase bb from 12.5mg bid to 25mg bid
Metabolic acidosis
Likely secondary to hyperchloremia
Expect to improve elevated troponin
Type II demand ischemia likely related to pneumonia and CKD stage IIIb
Troponin stable
Outpatient follow-up
Constipation
Aggressive bowel regimen
Anticipated Discharge: > 48 hours
Subjective/Interval History
-
Date of Service: July 16, 2025
seen and examined. no new complaints. no acute ovenright events
tele with pvs and bigeminy
Objective Data
-
Labs:
Laboratory Results
07/16/25
13:53
Sodium Pending
Potassium Pending
Chloride Pending
Carbon Dioxide Pending
BUN Pending
Creatinine Pending
Glucose Pending
Calcium Pending
Vital Signs:
Vital Signs
Temp Pulse Resp BP Pulse Ox
97.6 F 76 18 110/64 109
07/16/25 11:35 07/16/25 11:35 07/16/25 11:35 07/16/25 11:35 07/16/25 11:35
I&O
07/15/25 07/16/25 07/17/25
06:59 06:59 06:59
Intake Total 1440 / 1440
Output Total 1425 / 1425 775 / 775
Balance -1425 / -1425 665 / 665
[2025-07-16 15:04] LABS: Blood Urea Nitrogen 29 mg/dl (9-20); Calcium 7.6 mg/dl (8.4-10.2); Carbon Dioxide 23 mmol/L (22-30); Chloride 108 mmol/L (98-107); Estimated Creatinine Clearance 26 ml/min; Glucose 132 mg/dl (70-99); Magnesium 1.9 mg/dl (1.6-2.3); Potassium 3.7 mmol/L (3.5-5.1); Sodium 133 mmol/L (135-145); eGFR 39.51
[2025-07-16 15:09] VITALS: BP 114/63
[2025-07-16] MEDS: ATIVAN 1 MG PO (15:17)
[2025-07-16 19:49] VITALS: BP 136/79
[2025-07-16] MEDS: LIPITOR 40 MG PO (21:10)
[2025-07-16] MEDS: LOPRESSOR 25 MG PO (21:10)
[2025-07-16 23:31] VITALS: BP 133/79
[2025-07-17] MEDS: ZOSYN 50 IV (02:02)
[2025-07-17 03:39] VITALS: BP 139/68
[2025-07-17 06:00] VITALS: BMI 23.9
[2025-07-17 07:00] VITALS: BP 157/93
[2025-07-17] MEDS: FLOMAX 0.4 MG PO (07:46)
[2025-07-17] MEDS: LIDOCAINE 4% PATCH 1 PATCH TOPICAL (07:46)
[2025-07-17] MEDS: COZAAR 25 MG PO (07:46)
[2025-07-17] MEDS: LOW STRENGTH ASPIRIN 81 MG PO (07:46)
[2025-07-17] MEDS: SENOKOT 17.2 MG PO (07:46)
[2025-07-17] MEDS: MIRALAX PO (07:47)
[2025-07-17] MEDS: SENOKOT-S 1 TABLET PO (07:47)
[2025-07-17] MEDS: NSS (PRESERVATIVE FREE) 10 ML IV (07:47)
[2025-07-17] MEDS: HEPARIN 5000 UNITS SC ×2 (07:47→15:59)
[2025-07-17] MEDS: LOPRESSOR 25 MG PO (07:47)
[2025-07-17] MEDS: KEPPRA 500 MG PO ×2 (07:47→15:59)
[2025-07-17] MEDS: PROTONIX IV 40 MG IV (07:47)
[2025-07-17 09:02] LABS: Hematocrit 27.6 % (39.0-52.0); Hemoglobin 9.0 g/dL (13.0-18.0); Mean Corp Hgb Conc. 32.6 g/dL (33.0-37.0); Mean Corpuscular Volume 96.2 fL (80.0-94.0); Platelet Count 210 10^3/uL (130-400); Red Cell Dist. Width 17.7 % (11.5-14.5)
[2025-07-17 09:16] LABS: Blood Urea Nitrogen 25 mg/dl (9-20); Calcium 8.2 mg/dl (8.4-10.2); Carbon Dioxide 20 mmol/L (22-30); Chloride 111 mmol/L (98-107); Estimated Creatinine Clearance 30 ml/min; Glucose 90 mg/dl (70-99); Sodium 136 mmol/L (135-145); eGFR 45.91
[2025-07-17 09:25] VITALS: BP 128/66; BP 158/88; PULSE 35; PULSE 75
[2025-07-17 09:58] VITALS: BP 128/66; BP 158/88; PULSE 75
[2025-07-17 10:13] LABS: Potassium 4.1 mmol/L (3.5-5.1)
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
--- NOTE | 2025-07-17 10:28 | W.PN.HOSP.TC ---
Today's Communication/Plan
-
If no further recs from cardiology then will plan to dc home with rec to follow up as an outpatient with cardiology and gastroentrology
Assessment / Plan
Assessment / Plan
Epigastric pain with a CT that did not demonstrate pancreatitis
Lipase minimally elevated 800s now down to 500s along with epigastric pain we will treat as acute pancreatitis, PUD
IV fluids trend LFTs
MRCP, claustrophobic, premedicate with ativan oral 30mins prior
IV twice daily PPI
Outpaitent follow up
CKD stage IIIb likely related to polycystic kidney disease
Avoid nephrotoxins
Monitor urinary output
Retention
Weathers catheter�indwelling, present on admission
PVC and bigeminy, c/b bradycardia ovenight into the 30-40s
Check lytes, replete prn
Increase bb from 12.5mg bid to 25mg bid
Cards reconsulted
Metabolic acidosis
Likely secondary to hyperchloremia
Expect to improve
Elevated troponin
Type II demand ischemia likely related to pneumonia and CKD stage IIIb
Troponin stable
Outpatient follow-up
Constipation
Aggressive bowel regimen
Anticipated Discharge: Today
Subjective/Interval History
-
Date of Service: July 17, 2025
seen and examined. no new complaints. no acute overnight events
Objective Data
-
Labs:
Laboratory Results
07/17/25
08:18
WBC 5.0
Hgb 9.0 L D
Hct 27.6 L
Plt Count 210 D
Sodium 136
Potassium 4.1
Chloride 111 H
Carbon Dioxide 20 L
BUN 25 H
Creatinine 1.5 H
Glucose 90
Calcium 8.2 L
Vital Signs:
Vital Signs
Temp Pulse Resp BP Pulse Ox
97.6 F 91 16 157/93 96
07/17/25 07:00 07/17/25 07:00 07/17/25 07:00 07/17/25 07:00 07/17/25 08:00
I&O
07/16/25 07/17/25 07/18/25
06:59 06:59 06:59
Intake Total 1440 / 1440 480 / 480 240 / 240
Output Total 775 / 775 1050 / 1050
Balance 665 / 665 -570 / -570 240 / 240
Physical Exam
-
General: Well Nourished, No Apparent Distress and Comfortable
HEENT: Normocephalic and Atraumatic
Respiratory: Clear to Auscultation
Cardiac: Regular Rhythm and S1/S2
GI: Soft, Nontender and Nondistended
Genito-urinary: No Costovertebral Tender and Clear Urine
Musculoskeletal: No Clubbing and No Cyanosis
Neuro: Awake and AO x 3
Psych: Calm
[2025-07-17 10:30] LABS: Magnesium 1.9 mg/dl (1.6-2.3)
[2025-07-17] MEDS: ZOSYN IV (10:33)
[2025-07-17 11:00] VITALS: BP 123/57
--- NOTE | 2025-07-17 13:12 | W.DCSUMMARY ---
Discharge Summary
Discharge Data
Date of Admission: 07/17/25
Date of Discharge: 07/17/25
-
Pending Results: No
Hospital Course
84-year-old male with past medical history significant for CAD status post NH, hypertension, GERD, CKD, BPH seizure
Presented with abdominal pain that was epigastric with a lipase in the high 800's. CT abdomen pelvis that was unremarkable did not demonstrate pancreatitis though did demonstrate multifocal pneumonia concerning for aspiration along with significant
stool burden. Was evaluated by gastroenterology. Started on IV fluids clear liquid diet. Recommended MRI/MRCP with without contrast as CT abdomen pelvis demonstrated mild intrahepatic and extrahepatic biliary duct dilatation however likely in the
setting of his prior cholecystectomy. MRCP deemed necessary due to pancreatitis and ductal biliary dilatation. Fortunately MRCP was completed did not demonstrate strictures masses though did demonstrate acute interstitial pancreatitis. Abdominal
pain improved. Tolerating diet. Outpatient gastroenterology follow-up for EGD.
Additionally found to have elevated troponin. Evaluated by cardiology. 2D echocardiogram completed with no regional wall motion abnormalities. No additional recommendations were provided. Due to the elevated troponin was placed on telemetry
monitoring noted to have premature ventricular complexes along with bigeminy. Therefore, metoprolol tartrate was increased to 25 mg twice a day. However continued to have PVCs bigeminy. Cardiology recommended to increase further to 37.5 mg twice
a day via [place] text. Outpatient cardiology follow-up.
Abdominal CT
IMPRESSION:
Consolidation with surrounding groundglass opacities in the right lower lobe as well as multiple small nodular opacities in the right middle lobe which likely represents multifocal pneumonia. This may be in the setting of aspiration.
Severe colonic stool burden likely due to constipation. There is likely mild rectal wall thickening suggestive of stercoral colitis.
Polycystic kidneys with numerous mildly hyperdense, indeterminant lesions. Further evaluation with dedicated renal ultrasound or nonemergent MRI abdomen is recommended for further evaluation.
Abdominal MRI/MRCP
IMPRESSION:
No MRCP evidence for choledocholithiasis. Bile duct dilatation is likely secondary to the previous cholecystectomy.
Acute interstitial edematous pancreatitis.
Polycystic kidneys with innumerable bilateral renal cysts, many of which are complex and contain proteinaceous/hemorrhagic material.
Pneumonia/aspiration in the right lung base.
Seen and examined on the day of discharge which was 07/17/2025. No new complaints. No acute overnight events.
General: Well Nourished, No Apparent Distress and Comfortable
HEENT: Normocephalic and Atraumatic
Respiratory: Clear to Auscultation
Cardiac: Regular Rhythm and S1/S2
GI: Soft, Nontender and Nondistended
Genito-urinary: No Costovertebral Tender and Clear Urine
Musculoskeletal: No Clubbing and No Cyanosis
Neuro: Awake and AO x 3
Psych: Calm
More than 30 minutes spent in discharge including
Final examination of the patient
Summarizing hospital stay
Instructions for continuing care to all relevant caregivers
Preparation of discharge records, prescriptions, and referral forms
Total time spent (in minutes): 33mins
Discharge Plan
-
Patient Disposition: Longterm/SNF
Discharge Diagnosis/Procedures: pancreatitis
Condition: Good
Diet: As tolerated, Low Fat, Low Cholesterol, 2 Gram Sodium and Low Residue
Activity: As tolerated
Activity Restrictions/Additional Instructions:
Presented with abdominal pain that was epigastric with a lipase in the high 800's. CT abdomen pelvis that was unremarkable did not demonstrate pancreatitis though did demonstrate multifocal pneumonia concerning for aspiration along with significant
stool burden. Was evaluated by gastroenterology. Started on IV fluids clear liquid diet. Recommended MRI/MRCP with without contrast as CT abdomen pelvis demonstrated mild intrahepatic and extrahepatic biliary duct dilatation however likely in the
setting of his prior cholecystectomy. MRCP deemed necessary due to pancreatitis and ductal biliary dilatation. Fortunately MRCP was completed did not demonstrate strictures masses though did demonstrate acute interstitial pancreatitis. Abdominal
pain improved. Tolerating diet. Outpatient gastroenterology follow-up for EGD.
Additionally found to have elevated troponin. Evaluated by cardiology. 2D echocardiogram completed with no regional wall motion abnormalities. No additional recommendations were provided. Due to the elevated troponin was placed on telemetry
monitoring noted to have premature ventricular complexes along with bigeminy. Therefore, metoprolol tartrate was increased to 25 mg twice a day. However continued to have PVCs bigeminy. Cardiology recommended to increase further to 37.5 mg twice
a day via [place] text.. Outpatient cardiology follow-up.
Abdominal CT
IMPRESSION:
Consolidation with surrounding groundglass opacities in the right lower lobe as well as multiple small nodular opacities in the right middle lobe which likely represents multifocal pneumonia. This may be in the setting of aspiration.
Severe colonic stool burden likely due to constipation. There is likely mild rectal wall thickening suggestive of stercoral colitis.
Polycystic kidneys with numerous mildly hyperdense, indeterminant lesions. Further evaluation with dedicated renal ultrasound or nonemergent MRI abdomen is recommended for further evaluation.
Abdominal MRI/MRCP
IMPRESSION:
No MRCP evidence for choledocholithiasis. Bile duct dilatation is likely secondary to the previous cholecystectomy.
Acute interstitial edematous pancreatitis.
Polycystic kidneys with innumerable bilateral renal cysts, many of which are complex and contain proteinaceous/hemorrhagic material.
Pneumonia/aspiration in the right lung base.
Referrals:
Yvette Henderson MD [Active, Gastroenterology] - in one to two months
Referral Note: In 1-2 months
UNKNOWN - PT DOES,NOT KNOW [Family Provider]
Prescriptions:
New
metoprolol tartrate 25 mg Tablet
37.5 mg PO BID Qty: 90 0RF
Continued
levetiracetam 500 MG tablet
500 mg PO TID
atorvastatin 40 MG tablet
40 mg PO HS
losartan 25 mg Tablet
25 mg PO DAILY
docusate sodium 100 mg Capsule
100 mg PO BID Qty: 0 0RF
lidocaine 4 % Adhesive Patch,Medicated
1 patch TOPICAL DAILY
Rx Instructions:
Appky to R thoracic back topically one time a day for chronic pain and remove per schedule
tamsulosin 0.4 mg Capsule
1 mg PO Daily
azelastine 137 mcg (0.1 %) [place],Non-Aerosol
1 spray INTRANASAL BID
sennosides [Senna Lax] 8.6 mg tablet
17.2 mg PO DAILY
polyethylene glycol 3350 17 gram Powder In Packet
17 g PO DAILY
omeprazole 20 mg Capsule,Delayed Release(Dr/Ec)
20 mg PO DAILY
acetaminophen 325 mg Tablet
650 mg PO Q4H PRN (Reason: temp > 100.5)
sumatriptan succinate 25 mg Tablet
25 mg PO ONCE PRN (Reason: Migraine headaches)
Rx Instructions:
may repeat dose after 2 hours if no relief. No more than 2 doses in 24 hours
olanzapine 2.5 mg Tablet
2.5 mg PO DAILY PRN (Reason: Anxiety)
magnesium hydroxide [Milk of Magnesia] 400 mg/5 mL Suspension
30 ml PO DAILY PRN (Reason: no BM x 3 days)
bisacodyl 10 mg Suppository
10 mg ME ONCE PRN (Reason: No BM x 4 days)
Fleet Enema 19-7 gram/118 mL Enema
118 ml ME ONCE PRN (Reason: no bm x 5 days)
Discontinued
metoprolol tartrate 25 mg Tablet
12.5 mg PO BID
Discharge Orders:
Discharge Patient (As Directed); Ordered 07/17/25
Ordered By: Kris Haile
Discharge Date and Time
Print Language: SINHALA
--- NOTE | 2025-07-17 13:44 | CM ---
Addendum entered by Madelaine Higginbotham RN 07/17/25 13:46:
Medical nec form completed for ambulance
Original Note:
MD entered order for discharge.
Pt changed to inpatient IMM reviewed with pt and Ciara.
Spoke with patient in room he agreed with discharge to [facility] today.
agrees with SNF today
Spoke with Mariluz at [facility] he had a 3 days stay a [facility] so he qualifies for return to SNF.Bed ready today
[facility]
Report: [phone]

PLAN Return to [facility]
[2025-07-17 14:56] VITALS: BP 124/78
== END 2025-07-17 17:39 | DRG 438 ==
LOC: 4 EAST ACU 09:23
PROVIDERS: Surgery Trauma Surgery; ADMITTING PHYSICIAN Internal Medicine; ATTENDING PHYSICIAN Hospitalist; CONSULT PHYSICIAN Internal Medicine; CONSULT PHYSICIAN Student in an Organized Health Care Education/Training Program; EMERGENCY PHYSICIAN Emergency Medicine
DX: K85.80 Other acute pancreatitis without necrosis or infection (principal); J18.9 Pneumonia, unspecified organism; J69.0 Pneumonitis due to inhalation of food and vomit; E87.20 Acidosis, unspecified; I45.2 Bifascicular block; I5A Non-ischemic myocardial injury (non-traumatic); Q61.3 Polycystic kidney, unspecified; I24.89 Other forms of acute ischemic heart disease; I25.10 Atherosclerotic heart disease of native coronary artery without angina pectoris; G44.009 Cluster headache syndrome, unspecified, not intractable; F41.9 Anxiety disorder, unspecified; G40.909 Epilepsy, unspecified, not intractable, without status epilepticus; I10 Essential (primary) hypertension; N40.1 Benign prostatic hyperplasia with lower urinary tract symptoms; K21.9 Gastro-esophageal reflux disease without esophagitis; N18.32 Chronic kidney disease, stage 3b; K83.8 Other specified diseases of biliary tract; D50.9 Iron deficiency anemia, unspecified; K22.89 Other specified disease of esophagus; K44.9 Diaphragmatic hernia without obstruction or gangrene; I49.3 Ventricular premature depolarization; E87.8 Other disorders of electrolyte and fluid balance, not elsewhere classified; R33.9 Retention of urine, unspecified; K52.89 Other specified noninfective gastroenteritis and colitis; R13.12 Dysphagia, oropharyngeal phase; K56.41 Fecal impaction; Z66 Do not resuscitate; I25.2 Old myocardial infarction; Z95.5 Presence of coronary angioplasty implant and graft; Z90.49 Acquired absence of other specified parts of digestive tract; Z87.11 Personal history of peptic ulcer disease
CPT/HCPCS: 74177; 74183; 80048; 80053; 80076; 82728; 83540; 83550; 83605; 83690; 83735; 84100; 84484; 85025; 85027; 92526; 92610; 93005; 93306; 94640; 96365; 97110; 97162; 97167; 99285; Q9967

== ENCOUNTER 2025-07-19 13:45 | Inpatient (IN) | payer MEDICARE, SELFPAY ==
[2025-07-19] VITALS (20 sets, daily range): BP systolic 128–182; BP diastolic 60–91; BMI 25.2; BMI 21.0
--- NOTE | 2025-07-19 06:58 | ED.GENMED ---
History of Present Illness
<Sonia Mayes PA-C - Last Filed: 07/19/25 22:31>
General
Chief Complaint: Flank Pain
Source: patient
Exam Limitations: none
Time Seen by Provider: 07/19/25 06:55
Nursing documentation reviewed up to this point in time: agreed with
History of Present Illness
History of Present Illness:
Patient is an 84-year-old male with history CAD, hypertension who presents to the emergency department from [facility] with right hip pain. Patient sleeping on initial assessment and providing somewhat disorganized history. He denies any current
discomfort while lying in bed although states that he came to the emergency department for evaluation of right hip pain. It is unclear exactly when this pain started. He denies any radiation of pain into his back or into his leg. No
numbness/tingling or weakness in extremities. He initially told me that he slipped earlier today however by the end of my assessment states that he fell a few weeks ago.
He specifically denies any headache, neck pain, back pain. He denies any chest pain, shortness of breath, abdominal pain. No recent fevers.
Patient has an indwelling Harkins catheter which is draining clear yellow urine.
Past History
<Sonia Mayes PA-C - Last Filed: 07/19/25 22:31>
Past History
ED Past Medical History: CAD, HTN, LA, Renal failure (Renal insufficiency, creatinine baseline of 1.7.), Other (Cluster headaches) and Other (Right bundle-branch block)
ED Past Surgical History: Cardiac (PTCA with stent 2016), Cholecystectomy and Orthopedic
Social History
Tobacco: Non-smoker
Alcohol: None
Drug: None
Personal:
Living: with family
Employment: Retired
Family History
Family History: Other (Noncontributory)
Review of Systems
<Sonia Mayes PA-C - Last Filed: 07/19/25 22:31>
Review of Systems
Allergies reviewed?: Yes
All Other Systems: ROS reviewed and negative except as documented in HPI and ROS
Phy Exam
<Sonia Mayes PA-C - Last Filed: 07/19/25 22:31>
Physical Exam
Physical Exam:
Vitals: Hypertensive, otherwise vital signs stable. Afebrile
General: Patient is resting comfortably on initial exam.
Skin: Warm and dry, no rashes or lesions
Head: Normocephalic, atraumatic
Eyes: Sclera nonicteric.
Throat: Protecting airway
Neck: Normal ROM, no cervical spine tenderness, no meningismus
Cardiac: Regular rate and rhythm, no murmurs.
Pulm: Normal respiratory effort. Lungs clear bilaterally
Abdomen: Soft and nontender
Extremities: Mild tenderness in right hip without any obvious deformity. Full range of motion in bilateral hips including internal/external rotation. 2+ palpable DP pulses bilaterally
Neuro: AAOx3. No focal neurologic deficits.
Psychiatric: Normal affect.
Course
<Sonia Mayes PA-C - Last Filed: 07/19/25 22:31>
Orders/Labs/Results
Orders:
Orders
07/19/25 Breakfast
Cholesterol Lowering
At Your Request: Full Participation
Cholesterol Lowering: Sodium, 2 Gram
07/19/25 07:09
Acetaminophen [Tylenol] 1,000 mg PO NOW STA
Hip, Right 2-3 Views [CR Hip - RT w/wo Pel 2-3 Vw*] Urgent
Comment:
Reason For Exam: Right hip pain
Include a pelvis x-ray?: Yes
07/19/25 09:45
Urinalysis Reflex To Culture Urgent
Date Specimen was Collected: 07/19/25
Time Specimen was Collected: 09:40
Urine Microscopic Reflex Cult Urgent
Urine Culture Urgent
BOOM Source: U
Specimen Description:
Date Specimen was Collected: 07/19/25
Time Specimen was Collected: 09:40
07/19/25 10:31
Abdomen/Pelvis wo Contrast CT [CT Abd/pelvis Wo Iv Cont] Urgent
Comment:
Reason For Exam: Right flank/hip pain
07/19/25 10:39
Complete Blood Count/With Diff Urgent
Comprehensive Metabolic Panel Urgent
07/19/25 13:02
Cefepime HCl [Maxipime] 2,000 mg IV NOW STA
Vancomycin [Vancocin] 1,500 mg 0.9% Sodium Chloride 500 ml [Nss] 500 ml IV NOW
07/19/25 13:34
Admit/Transfer Patient As Directed
Co-Sign Provider:
Level of Care: Inpatient admission
Assign to:: Medical/Surgical
Physician / Group: jodie
Diagnosis: pneumonia
Reason for Hospitalization: pneumonia
Expected length of stay greater than two midnights?: Yes
ELOS- Estimated Length of Stay in days: 3
I certify the patient meets the requirements for IP care: Yes
PRN Pain Medication Management As Directed
May give lesser potent ordered pain med per pt: Yes
preference::
Protocol:: Medication orders for pain may be administered in a
manner that supports deferring to patient preference
when the pt is:
- Requesting an ordered lesser potent pain medication.
Least to most potent pain medications are defined
as: acetaminophen < NSAID < tramadol < opioids
(morphine, oxycodone, hydromorphone).
- Requesting a lesser dose of the same medication IF
ORDERED.
- Requesting a less intrusive route of administration
if both routes are prescribed by the provider (PO <
IV).
07/19/25 13:35
Code Status As Directed
Resuscitation Status: Do not resuscitate
Reached after discussion with pt or family/Healthcare POA: Yes
DNR Bracelet Application ONCE
07/19/25 13:44
COVID-19 Antigen Stat
Source: Nasal Swab
Influenza A+B Rapid Molecular Stat
BOOM Source: Nasal Swab
Specimen Description:
07/19/25 15:39
Acetaminophen [Tylenol] 650 mg PO Q4HPRN PRN
CefTRIAXone [Rocephin] 1,000 mg IV Q24H
Guaifenesin [Mucinex] 600 mg PO Q12 PRN
Olanzapine [Zyprexa] 2.5 mg PO DAILY PRN Anxiety
Polyethylene Glycol Powder [Miralax] 17 grams PO DAILY
07/19/25 15:39
Legionella Urinary Antigen Routine
BOOM Source: Urine
Specimen Description:
Respiratory Culture/Gram Stain Urgent
BOOM Source: Sputum
Specimen Description:
Strep pneumoniae Antigen Routine
BOOM Source: Urine
Specimen Description:
Activity As Directed
Activity Level: Out of Bed-Early Mobility
Harkins Catheter [Catheter- Indwelling] As Directed
Reason for insertion: Chronic Harkins on Admit
Intake/ Output As Directed
Frequency: Per unit guidelines
Vital Signs As Directed
Frequency: Per unit guidelines
Weight As Directed
Frequency: Once
Comment: on admission
Ot Eval And Treat Routine
Pt Eval And Treat Routine
Activity Level: As Tolerated
Speech Therapy Eval & Treat Routine
DX Deep Vein Thrombosis Video Routine
07/19/25 16:00
Levetiracetam [Keppra] 500 mg PO TID
07/19/25 18:00
Enoxaparin Sodium [Lovenox] 40 mg SC QPM
07/19/25 20:00
Docusate Sodium [Colace] 100 mg PO BID
Metoprolol [Lopressor] 37.5 mg PO BID
azelastine See Dose Instructions NASAL BID
07/19/25 22:00
Atorvastatin [Lipitor] 40 mg PO HS
Sennosides [Senna Syrup] 8.8 mg PO HS
07/20/25 06:00
Basic Metabolic Panel IN AM
Complete Blood Count/No Diff IN AM
07/20/25 08:00
Azithromycin [Zithromax] 500 mg PO DAILY
Lidocaine [Lidocaine 4% Patch] 1 patch TOPICAL DAILY
Apply Lidocaine patch(s) to:: back
Losartan [Cozaar] 25 mg PO DAILY
Pantoprazole [Protonix] 40 mg PO DAILY
Tamsulosin [Flomax] 1 mg PO Daily
Abnormal Lab Results
07/19/25 07/19/25
09:45 10:39
WBC 3.4 L 10^3/uL
(4.8-10.8)
RBC 2.26 L 10^6/uL
(4.70-6.10)
Hgb 7.0 L D g/dL
(13.0-18.0)
Hct 21.8 L %
(39.0-52.0)
MCV 96.5 H fL
(80.0-94.0)
MCHC 32.1 L g/dL
(33.0-37.0)
RDW 17.6 H %
(11.5-14.5)
Absolute Lymphs (auto) 0.7 L 10^3/uL
(1.2-3.4)
Monocytes % 9.5 H %
(1.7-9.3)
Chloride 109 H mmol/L
(98-107)
BUN 21 H mg/dl
(9-20)
Calcium 8.3 L mg/dl
(8.4-10.2)
Total Protein 5.2 L g/dl
(6.3-8.2)
Albumin 2.5 L g/dl
(3.5-5.0)
Ur Occult Blood Reflex 3+ A
(Negative)
Leukocyte Esterase Rfl 3+ A
(Negative)
Urine RBC 11-15 A /HPF
(0-2)
Urine WBC (Reflex) 70-80 A /HPF
(0-5)
Urine Bacteria (Reflex) Few A
(Negative)
Urine Yeast Moderate A
(Negative)
Urine Albumin (Reflex) 2+ A
(Neg - Trace)
07/19/25 10:39
07/19/25 10:39
Vital Signs
Initial and Last Documented VS:
Initial Vital Signs
Temp Pulse Resp BP Pulse Ox
98.1 F 76 16 163/83 97
07/19/25 02:29 07/19/25 02:29 07/19/25 02:29 07/19/25 02:29 07/19/25 02:29
Last Documented Vital Signs
Temp Pulse Resp BP Pulse Ox
98.4 F 107 17 146/90 97
07/19/25 16:17 07/19/25 21:00 07/19/25 16:17 07/19/25 21:00 07/19/25 16:17
<Emery Grover MD - Last Filed: 07/19/25 13:06>
Orders/Labs/Results
Orders:
Orders
07/19/25 Breakfast
Cholesterol Lowering
At Your Request: Full Participation
Cholesterol Lowering: Sodium, 2 Gram
07/19/25 07:09
Acetaminophen [Tylenol] 1,000 mg PO NOW STA
Hip, Right 2-3 Views [CR Hip - RT w/wo Pel 2-3 Vw*] Urgent
Comment:
Reason For Exam: Right hip pain
Include a pelvis x-ray?: Yes
07/19/25 09:45
Urinalysis Reflex To Culture Urgent
Date Specimen was Collected: 07/19/25
Time Specimen was Collected: 09:40
Urine Microscopic Reflex Cult Urgent
Urine Culture Urgent
BOOM Source: U
Specimen Description:
Date Specimen was Collected: 07/19/25
Time Specimen was Collected: 09:40
07/19/25 10:31
Abdomen/Pelvis wo Contrast CT [CT Abd/pelvis Wo Iv Cont] Urgent
Comment:
Reason For Exam: Right flank/hip pain
07/19/25 10:39
Complete Blood Count/With Diff Urgent
Comprehensive Metabolic Panel Urgent
07/19/25 13:02
Cefepime HCl [Maxipime] 2,000 mg IV NOW STA
Vancomycin [Vancocin] 1,500 mg 0.9% Sodium Chloride 500 ml [Nss] 500 ml IV NOW
07/19/25 13:34
Admit/Transfer Patient As Directed
Co-Sign Provider:
Level of Care: Inpatient admission
Assign to:: Medical/Surgical
Physician / Group: jodie
Diagnosis: pneumonia
Reason for Hospitalization: pneumonia
Expected length of stay greater than two midnights?: Yes
ELOS- Estimated Length of Stay in days: 3
I certify the patient meets the requirements for IP care: Yes
PRN Pain Medication Management As Directed
May give lesser potent ordered pain med per pt: Yes
preference::
Protocol:: Medication orders for pain may be administered in a
manner that supports deferring to patient preference
when the pt is:
- Requesting an ordered lesser potent pain medication.
Least to most potent pain medications are defined
as: acetaminophen < NSAID < tramadol < opioids
(morphine, oxycodone, hydromorphone).
- Requesting a lesser dose of the same medication IF
ORDERED.
- Requesting a less intrusive route of administration
if both routes are prescribed by the provider (PO <
IV).
07/19/25 13:35
Code Status As Directed
Resuscitation Status: Do not resuscitate
Reached after discussion with pt or family/Healthcare POA: Yes
DNR Bracelet Application ONCE
07/19/25 13:44
COVID-19 Antigen Stat
Source: Nasal Swab
Influenza A+B Rapid Molecular Stat
BOOM Source: Nasal Swab
Specimen Description:
07/19/25 15:39
Acetaminophen [Tylenol] 650 mg PO Q4HPRN PRN
CefTRIAXone [Rocephin] 1,000 mg IV Q24H
Guaifenesin [Mucinex] 600 mg PO Q12 PRN
Olanzapine [Zyprexa] 2.5 mg PO DAILY PRN Anxiety
Polyethylene Glycol Powder [Miralax] 17 grams PO DAILY
07/19/25 15:39
Legionella Urinary Antigen Routine
BOOM Source: Urine
Specimen Description:
Respiratory Culture/Gram Stain Urgent
BOOM Source: Sputum
Specimen Description:
Strep pneumoniae Antigen Routine
BOOM Source: Urine
Specimen Description:
Activity As Directed
Activity Level: Out of Bed-Early Mobility
Harkins Catheter [Catheter- Indwelling] As Directed
Reason for insertion: Chronic Harkins on Admit
Intake/ Output As Directed
Frequency: Per unit guidelines
Vital Signs As Directed
Frequency: Per unit guidelines
Weight As Directed
Frequency: Once
Comment: on admission
Ot Eval And Treat Routine
Pt Eval And Treat Routine
Activity Level: As Tolerated
Speech Therapy Eval & Treat Routine
DX Deep Vein Thrombosis Video Routine
07/19/25 16:00
Levetiracetam [Keppra] 500 mg PO TID
07/19/25 18:00
Enoxaparin Sodium [Lovenox] 40 mg SC QPM
07/19/25 20:00
Docusate Sodium [Colace] 100 mg PO BID
Metoprolol [Lopressor] 37.5 mg PO BID
azelastine See Dose Instructions NASAL BID
07/19/25 22:00
Atorvastatin [Lipitor] 40 mg PO HS
Sennosides [Senna Syrup] 8.8 mg PO HS
07/20/25 06:00
Basic Metabolic Panel IN AM
Complete Blood Count/No Diff IN AM
07/20/25 08:00
Azithromycin [Zithromax] 500 mg PO DAILY
Lidocaine [Lidocaine 4% Patch] 1 patch TOPICAL DAILY
Apply Lidocaine patch(s) to:: back
Losartan [Cozaar] 25 mg PO DAILY
Pantoprazole [Protonix] 40 mg PO DAILY
Tamsulosin [Flomax] 1 mg PO Daily
Abnormal Lab Results
07/19/25 07/19/25
09:45 10:39
WBC 3.4 L 10^3/uL
(4.8-10.8)
RBC 2.26 L 10^6/uL
(4.70-6.10)
Hgb 7.0 L D g/dL
(13.0-18.0)
Hct 21.8 L %
(39.0-52.0)
MCV 96.5 H fL
(80.0-94.0)
MCHC 32.1 L g/dL
(33.0-37.0)
RDW 17.6 H %
(11.5-14.5)
Absolute Lymphs (auto) 0.7 L 10^3/uL
(1.2-3.4)
Monocytes % 9.5 H %
(1.7-9.3)
Chloride 109 H mmol/L
(98-107)
BUN 21 H mg/dl
(9-20)
Calcium 8.3 L mg/dl
(8.4-10.2)
Total Protein 5.2 L g/dl
(6.3-8.2)
Albumin 2.5 L g/dl
(3.5-5.0)
Ur Occult Blood Reflex 3+ A
(Negative)
Leukocyte Esterase Rfl 3+ A
(Negative)
Urine RBC 11-15 A /HPF
(0-2)
Urine WBC (Reflex) 70-80 A /HPF
(0-5)
Urine Bacteria (Reflex) Few A
(Negative)
Urine Yeast Moderate A
(Negative)
Urine Albumin (Reflex) 2+ A
(Neg - Trace)
07/19/25 10:39
07/19/25 10:39
Vital Signs
Initial and Last Documented VS:
Initial Vital Signs
Temp Pulse Resp BP Pulse Ox
98.1 F 76 16 163/83 97
07/19/25 02:29 07/19/25 02:29 07/19/25 02:29 07/19/25 02:29 07/19/25 02:29
Last Documented Vital Signs
Temp Pulse Resp BP Pulse Ox
98.4 F 107 17 146/90 97
07/19/25 16:17 07/19/25 21:00 07/19/25 16:17 07/19/25 21:00 07/19/25 16:17
<Sonia Mayes PA-C - Last Filed: 07/19/25 22:31>
MDM/Problems Addressed
Differential Diagnosis Includes:
Not limited to: Hip contusion, muscular strain/spasm, radicular pain, pyelonephritis, renal colic, urinary retention, etc.
MDM/Problems Addressed:
84-year-old male with right hip/flank pain. Poor historian. Had recent admission, discharged to SNF two days ago. No history of recent trauma.
Patient resting comfortably in no distress on my initial evaluation. His vital signs are stable, afebrile. He is alert and oriented without any evidence of traumatic injuries or obvious deformity of RLE. No reproducible abdominal or flank pain.
Cardio/pulmonary assessment unremarkable. He has an indwelling harkins catheter draining clear yellow urine.
Prior to my evaluation, the RN did bladder scan which revealed only ~ 4 ml of urine.
While patient is alert and oriented � he is a poor historian and I feel there�s some degree of underlying confusion as he is saying many conflicting things. Spoke to patients who says this has been gradual over the past 6 weeks. I made multiple
attempts to contact patients [facility] facility and was unable to get in touch with nurse/Aide for more information regarding reason for presenting to ED.
Work up was initiated including x-ray of right hip as well as UA.
X-ray without acute findings. Urinalysis did reveal RBC�s, as well as likely contamination from chronic harkins. Given history of possible flank pain and microscopic hematuria � will proceed with kidney stone work up including labs and noncontrast CT
scan abdomen/pelvis.
Update: CBC reveals acute on chronic anemia. Chemistry without any clinically significant abnormalities. CT scan reveals right lower/upper lobe pneumonia, which was seen during prior admission, however unclear if this has been treated. It does not
appear that he was discharged or oral antibiotics. Also noted constipation and possible fecal impaction.
I did discuss findings with patient�s over the phone and possibility that patient�s right flank pain may be secondary to right sided pneumonia. Patient has been resting comfortably and in no respiratory distress � will admit patient for IV
antibiotics. Enema ordered in ED. Patient accepted to hospitalist service in stable condition.
Chronic conditions affecting care:
Hypertension
Acute Exacerbation and/or Progression of Chronic Illness:
Acutely hypertensive
<oSnia Mayes PA-C - Last Filed: 07/19/25 22:31>
*Radiology
Radiology exam reviewed: radiology read reviewed
*Pulse Oximetry
SaO2: 100
Oxygen Mode of Delivery: Room air
Patient hypoxic: no
*EKG
Interpreted by ED Provider?: NA
*Doctor Of Optometry Interpretation
Rate: Doctor Of Optometry- N/A
*Critical Care Note
Total Time (30-74mins, 75-104mins- exclusive of procedures): Not Applicable
<Sonia Mayes PA-C - Last Filed: 07/19/25 22:31>
Patient Management
Discussion with other providers: Hospitalist
ED Attending Note
<Sonia Mayes PA-C - Last Filed: 07/19/25 22:31>
-
Portions of this chart may have been created with voice recognition software.� Occasional wrong word or��sound alike� substitutions may have occurred due to the inherent limitations of voice recognition software.
<Emery Grover MD - Last Filed: 07/19/25 13:06>
ED Attending Note
Patient seen and examined by attending physician: Yes
ED Attending Note:
I have seen and evaluated the patient with a [id number] encounter. I have spoken to the advance practicer provider and involved in the medical history, the physical exam, medical decision making.
Evaluation and management service: agree unless noted differently below.
Results interpretation: agree unless noted differently below.
Focused HPI: 84-year-old male with history as noted presents with right flank pain. He is a very poor historian cannot give me much information about the chronicity of his pain. He reports some associated cough. He was just admitted with
abdominal pain and abnormal lipase and had extensive GI workup; during this workup incidental note made of pneumonia on his right lung but it does not appear that this was treated with antibiotics.
Physical exam: Hypertensive but otherwise acceptable vital signs. Awake and alert, nontoxic. Not focally tender in the right flank. Diminished breath sounds right lung base.
Medical Decision Makin-year-old male presents with right flank pain and cough. Labs here showed mild leukopenia 3.4, acute on chronic anemia. Chemistry no clinically significant abnormalities. Urinalysis abnormal but with chronic catheter
may represent colonization rather than true infection. Doubt pyelonephritis. CT abdomen showed redemonstration of pneumonia appears worse compared to prior imaging; also has constipation/fecal impaction. Treat the enema. Cover with antibiotics
for pneumonia. Will admit for continued treatment.
Discharge Plan
Departure
Patient Disposition: Admit
Date of Disposition: 07/19/25
Time of Disposition: 12:59
Presentation/result/management discussed w/ accepting MD/DO: Hospitalist
Discharge Problem:
Pneumonia involving right lung, Constipation, Acute on chronic anemia
Interventions
Interventions:
*General Assessment Last Done: 07/19/25 02:59
*Neglect/Abuse Screening Last Done: 07/19/25 02:59
*ED COVID-19 Vaccine History Last Done: 07/19/25 02:59
*ED Influenza Vaccine History Last Done: 07/19/25 02:59
[facility] Fall Risk Assessment Tool Last Done: 07/19/25 04:33
*Risk Screen - Suicide (C-SSRS) Last Done: 07/19/25 02:19
*Nursing Disposition Last Done: 07/19/25 16:27
BK-Vvpvyh-Vevbffebtn Assessment Last Done: 07/19/25 05:41
ED-Male Genitourinary Assessment Last Done: 07/19/25 05:41
Discharge Date and Time
Discharge Date/Time: 07/19/25 16:28
[2025-07-19] MEDS: TYLENOL 1000 MG PO (07:54)
[2025-07-19 10:24] LABS: Urine Character Slightly Cloudy (Clear)
[2025-07-19 10:37] LABS: Urine Squamous Cell 0-2 /LPF (Few); Urine White Cell 70-80 /HPF (0-5)
[2025-07-19 10:57] LABS: Hematocrit 21.8 % (39.0-52.0); Hemoglobin 7.0 g/dL (13.0-18.0); Mean Corp Hgb Conc. 32.1 g/dL (33.0-37.0); Mean Corpuscular Volume 96.5 fL (80.0-94.0); Nucleated Red Blood Cells % 0 % (-); Platelet Count 200 10^3/uL (130-400); Red Cell Dist. Width 17.6 % (11.5-14.5)
[2025-07-19 11:30] LABS: ALT (SGPT) < 10 U/L (0-50); AST (SGOT) 24 U/L (17-59); Albumin 2.5 g/dl (3.5-5.0); Alkaline Phosphatase 73 U/L (38-126); Blood Urea Nitrogen 21 mg/dl (9-20); Calcium 8.3 mg/dl (8.4-10.2); Carbon Dioxide 23 mmol/L (22-30); Chloride 109 mmol/L (98-107); Estimated Creatinine Clearance 35 ml/min; Glucose 82 mg/dl (70-99); Potassium 4.2 mmol/L (3.5-5.1); Sodium 135 mmol/L (135-145); Total Protein 5.2 g/dl (6.3-8.2); eGFR 54.51
--- NOTE | 2025-07-19 13:08 | HPS.HSE ---
Addendum entered and electronically signed by Deyvi Najera MD 07/19/25 15:14:
This is an addendum to H&P written by Jailyn Munguia on 07/19/2025. �Patient seen examined independently with INTERNATIONAL ACCOUNT MANAGER.
84-year-old male past medical history of CAD, hypertension, right bundle branch block, CKD 3B, polycystic kidney disease, chronic anemia, urinary retention with chronic Weathers, constipation, seizure disorder, GERD, presenting with right hip pain.
�History is questionable patient denies hip pain at this time, pain is more in the right upper rib region. �Pain is worse with palpation and cough.
Also with cough and congestion for past few days. �Denies fever vomiting. �He denies constipation although has been taking stool softeners.
Patient fell few weeks ago. �No flank pain at the current time.
Vital signs show heart rate 40-to 50s.
Labs show hemoglobin 7 from 9 two days prior, baseline appears to be 8.5-9.
Hip x-ray shows no acute abnormality. �CT abdomen pelvis shows moderate right lower lobe mild right upper lobe pneumonia probably aspiration pneumonia which has progressed. �There is large amount of fecal material in the rectum. �Fecal impaction
should be considered. �Urinalysis shows 70-80 WBC. �+3 leukocyte esterase.
Patient with right hip pain now resolved.
Patient with right-sided aspiration pneumonia. �Check COVID and influenza. �Ceftriaxone/azithromycin.
Check speech and swallow evaluation.
Patient also with significant constipation/fecal impaction. �Enema to be given. �Continue MiraLAX and senna.
Original Note:
Family Physician
-
Family Physician: NOT KNOW UNKNOWN - PT DOES
Chief Complaint
-
Right rib, flank pain
History of Present Illness
84-year-old male with history CAD, hypertension who presents to the emergency department from [facility] with right rib, flank pain for past 3-4 days. he complained of dry cough as well. he stated congestion. denied fever, chills, NIÑO, dizzy or syncope.
denied abdominal pain,n,v,d.patient has Weathers cath not sure when it was changed last. denied LE edema. patient had a fall 6 weeks ago. he fell on his back and denied any pain.
CT concerning for pneumonia. Patient received IV Vanco and cefepime in ER. Admitting for further management
Medical History
Past Medical History
Past Medical History: Reports Other
Additional Past Medical History:
Anemia, constipation, esophageal dysphagia, hiatal hernia, coronary artery disease, hypertension, scoliosis, CKD, DuoNeb on floor, iron deficiency anemia
Past Surgical History: Reports Other
Additional Past Surgical History:
Cardiac stent, bilateral hip replacement, bilateral anemia replacement
Social History
Tobacco: Non-smoker
Alcohol: None
Drug: None
Living: Retirement
Family History
Family History: Not pertinent
Allergies / Home Medications
Allergies reflects when Allergies were last updated in [employer].
Home Medications with original date entered in [employer]
Allergy/Medication List:
Allergies
Allergy/AdvReac Type Severity Reaction Status Date / Time
No Known Allergies Allergy Verified 12/19/24 05:47
Home Medications
levetiracetam 500 mg tablet 500 mg PO TID cluster headaches 10/10/18
atorvastatin 40 mg tablet 40 mg PO HS High cholesterol 07/01/21
losartan 25 mg tablet 25 mg PO DAILY Blood Pressure 06/09/23
docusate sodium 100 mg capsule 100 mg PO BID #0 caps 06/11/23
acetaminophen 325 mg tablet 650 mg PO Q4H PRN temp > 100.5 07/14/25
azelastine 137 mcg (0.1 %) nasal spray 1 spray intranasal BID 07/14/25
bisacodyl 10 mg rectal suppository 10 mg NJ ONCE PRN No BM x 4 days 07/14/25
lidocaine 4 % topical patch 1 patch topical DAILY 07/14/25
magnesium hydroxide 400 mg/5 mL oral suspension (Milk of Magnesia) 30 ml PO DAILY PRN no BM x 3 days 07/14/25
olanzapine 2.5 mg tablet 2.5 mg PO DAILY PRN Anxiety 07/14/25
omeprazole 20 mg capsule,delayed release 20 mg PO DAILY 07/14/25
polyethylene glycol 3350 17 gram oral powder packet 17 g PO DAILY 07/14/25
sennosides 8.6 mg tablet (Senna Lax) 17.2 mg PO DAILY 07/14/25
sodium phosphates 19 gram-7 gram/118 mL enema (Fleet Enema) 118 ml NJ ONCE PRN no bm x 5 days 07/14/25
sumatriptan succinate 25 mg tablet 25 mg PO ONCE PRN Migraine headaches 07/14/25
tamsulosin 0.4 mg capsule 1 mg PO Daily 07/14/25
metoprolol tartrate 25 mg tablet 37.5 mg (1.5 x 25 mg) PO BID #90 tabs 07/17/25
Review of Systems
-
Constitutional: Reports No Symptoms
EENT: Reports No Symptoms
Respiratory: Reports No Symptoms and Cough
Cardiac: Reports No Symptoms
Abdomen/GI: Reports Other (right rib and flank pain)
: Reports No Symptoms
Musculoskeletal: Reports No Symptoms
Skin: Reports No Symptoms
Neurological: Reports No Symptoms
Endocrine: Reports No Symptoms
Hematologic/Lymphatic: Reports No Symptoms
Psych: Reports No Symptoms
Physical Exam
Vital Signs
Vital Signs
Temp Pulse Resp BP Pulse Ox
98.1 F 40 17 162/62 99
07/19/25 02:29 07/19/25 12:00 07/19/25 04:00 07/19/25 12:00 07/19/25 12:00
Physical Exam
General: Well Developed, Well Nourished and No Apparent Distress
HEENT: NormoCephalic, Moist mucous membranes and Atraumatic
Respiratory: Clear
Cardiac: S1/S2 and Regular Rhythm; No Murmur or Rub
GI: Soft, Non Tender, Non Distended and Normal Bowel Sounds; No Organomegaly
Rectal: Deferred by Provider
Genito-urinary: Weathers
Musculoskeletal: No Clubbing, No Cyanosis and No Edema
Skin: No Rash
Neuro: Nonfocal/grossly intact
Psych: Calm
Laboratory Results
-
07/19/25 10:39
07/19/25 10:39
Laboratory Results
Total Bilirubin 0.5 mg/dl (0.2-1.3) 07/19/25 10:39
AST 24 U/L (17-59) 07/19/25 10:39
ALT < 10 U/L (0-50) 07/19/25 10:39
Alkaline Phosphatase 73 U/L (38-126) 07/19/25 10:39
Data Reviewed
-
Diagnostic Radiology: Report Reviewed by me
CT Scan: Report Reviewed by me
Lab Data: Labs Reviewed by me
Impression/Plan
-
# Right upper lobe pneumonia
- CT with right-sided pneumonia
- Vanco and cefepime in ER
-ceftriaxone and zithro
-obtain covid and flu.
-Mucinex prn for cough
-speech eval
- CT abdomen pelvis with impression of Findings suggesting moderate right lower lobe mild right upper lobe pneumonia. Probable aspiration pneumonia. Progressed. Some air is nodule. Pulmonary nodules not excluded. Repeat exam in 2-3 weeks following
treatment is recommended. The [facility] Nodule Advisory Board will be automatically informed of the findings.Small loculated right pleural effusion. EnlargedNumerous bilateral hypodense and hyperdense renal lesions likely benign
cysts. Stable. Moderate fecal material throughout the colon. StableLarge amount of fecal material in the region of the rectum. Fecal impaction should be considered. Progressed
# Right hip pain
-X-ray Unremarkable exam except for postsurgical change.
-PT, OT consulted.
# Constipation/fecal impaction
- Patient received enema
- Colace, senna and MiraLAX
# Acute on chronic anemia
- Hemoglobin 7.0, no active bleed
- Continue to monitor
CKD stage IIIb likely related to polycystic kidney disease
Avoid nephrotoxins
Monitor urinary output
# urinary Retention
-Weathers catheter�indwelling
#hxt of PVC and bigeminy
#bradycardia in 40's in ER.
-metoprolol continued with hold parameter
#HLD
-statin continued
#essential HTN
-losartan continued with hold parameter
#GERD
-PPI continued
#DVT prophylaxis
-lovenox
#CODE status
-DNR
[2025-07-19] MEDS: MAXIPIME 2000 MG IV (13:14)
[2025-07-19] MEDS: VANCOCIN 530 MG IV (13:50)
[2025-07-19 14:22] LABS: COVID-19 Antigen Negative (Negative)
--- NOTE | 2025-07-19 15:43 | EDCM ---
Reviewed chart and met with pt bedside in ED. Pt was admitted from [facility] where he has been for STR after an admission to [facility].
He lives with his in [address] with 2 YAMILETH from [facility].
Needs assistance with ADLs, independent in personal care, ambulates with cane. Has harkins.
Confirms prescription coverage.
hx VN
PCP: Aron Beckman
Pharmacy: [facility]
Anticipate return to [facility] to complete STR, CM will continue to follow for all discharge planning needs.
[2025-07-19] MEDS: MIRALAX 17 GRAMS PO (16:14)
[2025-07-19] MEDS: KEPPRA 500 MG PO ×2 (16:16→21:01)
[2025-07-19] MEDS: STERILE WATER FOR INJECTION 10 ML IV (16:58)
[2025-07-19] MEDS: ROCEPHIN 1000 MG IV (16:59)
[2025-07-19] MEDS: LOVENOX 40 MG SC (17:00)
--- NOTE | 2025-07-19 18:31 | TRANSFER ---
This Rn was able to complete admission/assessment while pt in Ed awaiting bed; (room being cleaned). pt transferred to floor using Er stretcher; pt able to go into bathroom first, incontinent black bm, then hospital bed with RW and 1 person assist
round trip. Indwelling Weathers intact. PIV site changed to left FA by VAT staff d/t concern of infiltration of initial PIV. pt tolerated dinner without issue. denies any sob/resp distress at this time. plan of care continues to be followed.
[2025-07-19] MEDS: SENNA SYRUP 8.8 MG PO (20:59)
[2025-07-19] MEDS: LIPITOR 40 MG PO (21:00)
[2025-07-19] MEDS: LOPRESSOR 37.5 MG PO (21:00)
[2025-07-19] MEDS: COLACE 100 MG PO (21:01)
[2025-07-19] MEDS: REMOVE LIDOCAINE PATCH 1 PATCH REMOVE (21:01)
--- NOTE | 2025-07-20 02:41 | W.PN.UPDATE ---
Update Note
Progress Note Update
Pt with brown/ black stool. RN reports heme pos stools.
PT admitted with pneumonia. Found to have hemoglobin of 7. He does have hx of anemia. Last admit (few days ago) HH ranged from 7.2-9.
For now will hold lovenox. On PPI already. Consider GI consult Though last admit per GI 'Previously declined pursuing bi-directional endoscopy, still not interested in pursuing an EGD or colonoscopy despite counseling.'
[2025-07-20 07:20] VITALS: BP 151/92
[2025-07-20] MEDS: COLACE PO ×2 (07:54→20:12)
[2025-07-20] MEDS: MIRALAX PO (07:55)
[2025-07-20] MEDS: COZAAR 25 MG PO (07:55)
[2025-07-20] MEDS: PROTONIX IV 40 MG IV ×2 (07:55→20:17)
[2025-07-20] MEDS: ZITHROMAX 500 MG PO (07:55)
[2025-07-20] MEDS: FLOMAX 0.4 MG PO (07:55)
[2025-07-20] MEDS: NSS (PRESERVATIVE FREE) 10 ML IV ×2 (07:56→20:17)
[2025-07-20] MEDS: LOPRESSOR 37.5 MG PO ×2 (07:58→20:16)
[2025-07-20] MEDS: KEPPRA 500 MG PO ×3 (07:59→22:29)
[2025-07-20 08:00] LABS: Blood Urea Nitrogen 22 mg/dl (9-20); Calcium 8.4 mg/dl (8.4-10.2); Carbon Dioxide 23 mmol/L (22-30); Chloride 108 mmol/L (98-107); Estimated Creatinine Clearance 39 ml/min; Glucose 83 mg/dl (70-99); Potassium 3.8 mmol/L (3.5-5.1); Sodium 136 mmol/L (135-145); eGFR > 60.00
[2025-07-20 08:16] LABS: Hematocrit 26.9 % (39.0-52.0); Hemoglobin 8.8 g/dL (13.0-18.0); Mean Corp Hgb Conc. 32.7 g/dL (33.0-37.0); Mean Corpuscular Volume 95.7 fL (80.0-94.0); Platelet Count 240 10^3/uL (130-400); Red Cell Dist. Width 17.0 % (11.5-14.5)
[2025-07-20 10:01] LABS: Procalcitonin < 0.05 ng/ml (0.0-0.25)
[2025-07-20] MEDS: UNASYN IV ×2 (11:27→22:30)
--- NOTE | 2025-07-20 13:35 | PTOTSP ---
Speech Therapy VSE:
Patient presents with functional oral and severe pharyngeal dysphagia. Patient demonstrated silent aspiration with and without compensatory strategies across liquid trials. All aspiration occurred in trace amounts. At times, difficult to visualize
new vs old material in vestibule/airway. A cued cough was effective at clearing majority material from vestibule/airway. Mild-moderate pharyngeal retention observed, greatest in vallecula and pyriform sinuses, which was observed to intermittently
spillover into airway after the swallow. Suspect aspiration contributing to current pneumonia. Question etiology of silent aspiration with no predisposing risk factors. Please see patient care note for full details of swallowing physiology.
Recommend:
1. Safest diet recommendation would be NPO
2. Medications crushed in puree
3. Initiate ARHP via sparing ice chips following oral care and with supervision
4. Modifiable risk factors for aspiration pneumonia including encouraging frequent and thorough oral care, pulmonary hygiene measures, and increasing physical mobility as medically feasible
5. ROUNDHOUSE FIRER/FIREMAN to follow for education regarding VSE findings and recommendations and training in pharyngeal strengthening exercises. Patient would benefit from repeat instrumental prior to diet initiation due to silent aspiration
[2025-07-20 14:49] VITALS: BP 157/78
--- NOTE | 2025-07-20 14:57 | W.PN.HOSP.TC ---
Today's Communication/Plan
-
Assessment / Plan
Assessment / Plan
Right upper lobe pneumonia
On previous admission was treated with 5 days of Zosyn
Repeat chest x-ray demonstrating worsening/progressive pneumonia
Resumed on antibiotics. Will discontinue Rocephin azithromycin start Unasyn
Provide aspiration precautions
Aspiration pneumonia
Unasyn
Speech therapy
Video swallow
Right hip pain
PT OT
Constipation fecal impaction
Colace senna MiraLAX
Acute on chronic anemia
Without acute bleeding
Anticipated Discharge: Within 24 hours
Subjective/Interval History
-
Date of Service: July 20, 2025
Seen and examined. No new complaints. No acute overnight events.
Objective Data
-
Labs:
Laboratory Results
07/20/25
07:15
WBC 5.8
Hgb 8.8 L D
Hct 26.9 L
Plt Count 240
Sodium 136
Potassium 3.8
Chloride 108 H
Carbon Dioxide 23
BUN 22 H
Creatinine 1.2
Glucose 83
Calcium 8.4
Vital Signs:
Vital Signs
Temp Pulse Resp BP Pulse Ox
98.2 F 78 18 157/78 94
07/20/25 14:49 07/20/25 14:49 07/20/25 14:49 07/20/25 14:49 07/20/25 14:49
I&O
07/19/25 07/20/25 07/21/25
06:59 06:59 06:59
Intake Total 1345 / 1345
Output Total 200 / 200 500 / 500
Balance 1145 / 1145 -500 / -500
Physical Exam
-
General: No Apparent Distress and Comfortable
HEENT: Normocephalic and Atraumatic
Respiratory: Rhonchi
Cardiac: Regular Rhythm and S1/S2
GI: Soft, Nontender, Nondistended and Normal Bowel Sounds
Musculoskeletal: No Clubbing, No Cyanosis and No Edema
Neuro: Awake and AO x 3
[2025-07-20] MEDS: STERILE WATER FOR INJECTION IV (16:54)
[2025-07-20 20:08] VITALS: BP 154/86
[2025-07-20] MEDS: REMOVE LIDOCAINE PATCH REMOVE ×2 (20:17→23:10)
[2025-07-20] MEDS: SENNA SYRUP PO (22:29)
[2025-07-20] MEDS: LIPITOR 40 MG PO (22:29)
[2025-07-20 23:50] VITALS: BP 151/88
[2025-07-21 07:34] LABS: Hematocrit 24.7 % (39.0-52.0); Hemoglobin 8.2 g/dL (13.0-18.0); Mean Corp Hgb Conc. 33.2 g/dL (33.0-37.0); Mean Corpuscular Volume 96.5 fL (80.0-94.0); Platelet Count 215 10^3/uL (130-400); Red Cell Dist. Width 16.6 % (11.5-14.5)
[2025-07-21 07:42] VITALS: BP 158/89
[2025-07-21] MEDS: FLOMAX 0.4 MG PO (07:50)
[2025-07-21] MEDS: COLACE PO ×2 (07:51→21:01)
[2025-07-21] MEDS: COZAAR 25 MG PO (07:51)
[2025-07-21] MEDS: PROTONIX IV 40 MG IV ×2 (07:52→21:00)
[2025-07-21] MEDS: MIRALAX PO (07:52)
[2025-07-21] MEDS: NSS (PRESERVATIVE FREE) 10 ML IV ×2 (07:52→21:00)
[2025-07-21] MEDS: KEPPRA 500 MG PO ×3 (07:55→21:00)
[2025-07-21] MEDS: LOPRESSOR 37.5 MG PO ×2 (07:56→20:59)
[2025-07-21 08:17] LABS: Blood Urea Nitrogen 19 mg/dl (9-20); Calcium 8.6 mg/dl (8.4-10.2); Carbon Dioxide 23 mmol/L (22-30); Chloride 110 mmol/L (98-107); Estimated Creatinine Clearance 36 ml/min; Glucose 81 mg/dl (70-99); Potassium 3.6 mmol/L (3.5-5.1); Sodium 137 mmol/L (135-145); eGFR 54.51
[2025-07-21] MEDS: UNASYN IV ×2 (10:41→22:26)
--- NOTE | 2025-07-21 13:51 | W.PN.HOSP.TC ---
Today's Communication/Plan
-
Assessment / Plan
Assessment / Plan
Right upper lobe pneumonia
Unasyn
Provide aspiration precautions
Aspiration pneumonia
Unasyn
Speech therapy
Video swallow
?Dysphagia
Swallow eval
Mri to r/o cva
Right hip pain
PT OT
Constipation fecal impaction
Colace senna MiraLAX
Acute on chronic anemia
Without acute bleeding
Anticipated Discharge: > 48 hours
Subjective/Interval History
-
Date of Service: July 21, 2025
seen and examined. no new complaints. no acute overnight events
Objective Data
-
Labs:
Laboratory Results
07/21/25
07:03
WBC 5.2
Hgb 8.2 L
Hct 24.7 L
Plt Count 215
Sodium 137
Potassium 3.6
Chloride 110 H
Carbon Dioxide 23
BUN 19
Creatinine 1.3
Glucose 81
Calcium 8.6
Vital Signs:
Vital Signs
Temp Pulse Resp BP Pulse Ox
98.2 F 87 16 158/89 98
07/21/25 07:42 07/21/25 07:42 07/21/25 07:42 07/21/25 07:56 07/21/25 07:42
I&O
07/20/25 07/21/25 07/22/25
06:59 06:59 06:59
Intake Total 1345 / 1345 600 / 600
Output Total 200 / 200 1125 / 1125
Balance 1145 / 1145 -525 / -525
[2025-07-21] MEDS: D5/0.45%NACL 1000 IV (14:12)
[2025-07-21 15:14] VITALS: BP 148/86
[2025-07-21] MEDS: STERILE WATER FOR INJECTION IV (16:12)
[2025-07-21] MEDS: SENNA SYRUP PO (21:00)
[2025-07-21] MEDS: LIPITOR 40 MG PO (21:00)
[2025-07-21] MEDS: REMOVE LIDOCAINE PATCH REMOVE (21:01)
[2025-07-21 23:00] VITALS: BP 157/80
[2025-07-22] MEDS: D5/0.45%NACL 1000 IV ×2 (05:22→16:34)
[2025-07-22] MEDS: COLACE PO ×2 (07:30→20:10)
[2025-07-22] MEDS: COZAAR 25 MG PO (07:30)
[2025-07-22] MEDS: FLOMAX 0.4 MG PO (07:30)
[2025-07-22] MEDS: KEPPRA 500 MG PO ×3 (07:30→22:19)
[2025-07-22] MEDS: LOPRESSOR 37.5 MG PO ×2 (07:31→20:07)
[2025-07-22] MEDS: MIRALAX PO (07:32)
[2025-07-22] MEDS: NSS (PRESERVATIVE FREE) 10 ML IV ×2 (07:32→20:08)
[2025-07-22] MEDS: PROTONIX IV 40 MG IV ×2 (07:32→20:08)
[2025-07-22 07:38] VITALS: BP 169/99
[2025-07-22 09:30] LABS: Hematocrit 25.1 % (39.0-52.0); Hemoglobin 8.4 g/dL (13.0-18.0); Mean Corp Hgb Conc. 33.5 g/dL (33.0-37.0); Mean Corpuscular Volume 95.4 fL (80.0-94.0); Platelet Count 204 10^3/uL (130-400); Red Cell Dist. Width 16.1 % (11.5-14.5)
[2025-07-22] MEDS: UNASYN IV ×2 (10:45→22:19)
[2025-07-22 13:22] LABS: Blood Urea Nitrogen 16 mg/dl (9-20); Calcium 8.3 mg/dl (8.4-10.2); Carbon Dioxide 24 mmol/L (22-30); Chloride 108 mmol/L (98-107); Estimated Creatinine Clearance 42 ml/min; Glucose 104 mg/dl (70-99); Potassium 3.4 mmol/L (3.5-5.1); Sodium 134 mmol/L (135-145); eGFR > 60.00
--- NOTE | 2025-07-22 14:03 | W.PN.HOSP.TC ---
Today's Communication/Plan
-
Assessment / Plan
Assessment / Plan
General: No Apparent Distress and Comfortable
HEENT: Normocephalic and Atraumatic
Respiratory: Rhonchi
Cardiac: Regular Rhythm and S1/S2
GI: Soft, Nontender, Nondistended and Normal Bowel Sounds
Musculoskeletal: No Clubbing, No Cyanosis and No Edema
Neuro: Awake and AO x 3
Right upper lobe pneumonia
Unasyn
Provide aspiration precautions
Aspiration pneumonia
Unasyn
Speech therapy�n.p.o./medications pur�ed
Video swallow completed failed
?Dysphagia
Swallow eval will need to be repeated on Wednesday
Mri to r/o cva and assess for dementia/chronic changes
Started discussing alternative sources of feeding with him and his such as PEG feeds
Right hip pain
PT OT
Constipation fecal impaction
Colace senna MiraLAX
Acute on chronic anemia
Without acute bleeding
For SNF when ready for DC
Anticipated Discharge: 24 - 48 hours
Subjective/Interval History
-
Date of Service: July 22, 2025
Seen and examined. No new complaints. No acute overnight events.
Objective Data
-
Labs:
Laboratory Results
07/22/25 07/22/25
08:59 13:06
WBC 4.4 L
Hgb 8.4 L
Hct 25.1 L
Plt Count 204
Sodium Cancelled 134 L
Potassium Cancelled 3.4 L
Chloride Cancelled 108 H
Carbon Dioxide Cancelled 24
BUN Cancelled 16
Creatinine Cancelled 1.1
Glucose Cancelled 104 H
Calcium Cancelled 8.3 L
Vital Signs:
Vital Signs
Temp Pulse Resp BP Pulse Ox
98.3 F 75 14 169/99 98
12/28/25 07:38 07/22/25 07:38 07/22/25 07:38 07/22/25 07:38 07/22/25 07:38
I&O
07/21/25 07/22/25 07/23/25
06:59 06:59 06:59
Intake Total 600 / 600 945 / 945
Output Total 1125 / 1125 800 / 800
Balance -525 / -525 145 / 145
[2025-07-22] MEDS: STERILE WATER FOR INJECTION IV (15:23)
--- NOTE | 2025-07-22 15:41 | CON.GI ---
Consultation
-
Date/Time Consultation Requested: 07/21/2025
Date/Time Consultation Performed: 07/22/2025
Requesting Provider: Hospitalist
Performing Provider: Ananth TOM
Reason for Consultation: PEG eval
Medical History
Chief Complaint / HPI
Chief Complaint: hip pain
History of Present Illness:
84-year-old male with history of coronary artery disease, hypertension, CKD, chronic anemia, urinary retention with chronic Weathers, seizure admitted with right hip pain. Patient also complains of cough and congestion for few days. Denies any fever
or abdominal pain or nausea or vomiting. CT abdomen/pelvis performed showing right lower lobe pneumonia probably aspiration pneumonia large amount of fecal material in the rectum.
Patient was evaluated by GI team during prior admission last week for abdominal pain.
GI was consulted today since patient failed speech eval. As per patient he was eating normal diet prior to this admission without any difficulty
07/20/25
Speech Therapy VSE:
Patient presents with functional oral and severe pharyngeal dysphagia. Patient demonstrated silent aspiration with and without compensatory strategies across liquid trials. All aspiration occurred in trace amounts. At times, difficult to visualize
new vs old material in vestibule/airway. A cued cough was effective at clearing majority material from vestibule/airway. Mild-moderate pharyngeal retention observed, greatest in vallecula and pyriform sinuses, which was observed to intermittently
spillover into airway after the swallow. Suspect aspiration contributing to current pneumonia. Question etiology of silent aspiration with no predisposing risk factors. Please see patient care note for full details of swallowing physiology.
Recommend:
1. Safest diet recommendation would be NPO
2. Medications crushed in puree
3. Initiate ARHP via sparing ice chips following oral care and with supervision
4. Modifiable risk factors for aspiration pneumonia including encouraging frequent and thorough oral care, pulmonary hygiene measures, and increasing physical mobility as medically feasible
5. RESIDENTIAL DESIGNER to follow for education regarding VSE findings and recommendations and training in pharyngeal strengthening exercises. Patient would benefit from repeat instrumental prior to diet initiation due to silent aspiration
Past Medical History
Past Medical History: Other (CAD, HTN, [place], (Cluster headaches) and (Right bundle-branch block))
Past Surgical History: Other (Cardiac (PTCA with stent 2016), Cholecystectomy and Orthopedic)
Allergies / Home Medications
Allergy/AdvReac Type Severity Reaction Status Date / Time
No Known Allergies Allergy Verified 12/19/24 05:47
�Medication �Instructions �Recorded
levetiracetam 500 mg tablet 500 mg PO TID cluster headaches 10/10/18
atorvastatin 40 mg tablet 40 mg PO HS High cholesterol 07/01/21
losartan 25 mg tablet 25 mg PO DAILY Blood Pressure 06/09/23
docusate sodium 100 mg capsule 100 mg PO BID #0 caps 06/11/23
acetaminophen 325 mg tablet 650 mg PO Q4H PRN temp > 100.5 07/14/25
azelastine 137 mcg (0.1 %) nasal 1 spray intranasal BID 07/14/25
spray
bisacodyl 10 mg rectal suppository 10 mg MI ONCE PRN No BM x 4 days 07/14/25
lidocaine 4 % topical patch 1 patch topical DAILY 07/14/25
magnesium hydroxide 400 mg/5 mL 30 ml PO DAILY PRN no BM x 3 days 07/14/25
oral suspension (Milk of Magnesia)
olanzapine 2.5 mg tablet 2.5 mg PO DAILY PRN Anxiety 07/14/25
omeprazole 20 mg capsule,delayed 20 mg PO DAILY 07/14/25
release
polyethylene glycol 3350 17 gram 17 g PO DAILY 07/14/25
oral powder packet
sennosides 8.6 mg tablet (Senna 17.2 mg PO DAILY 07/14/25
Lax)
sodium phosphates 19 gram-7 118 ml MI ONCE PRN no bm x 5 days 07/14/25
gram/118 mL enema (Fleet Enema)
sumatriptan succinate 25 mg tablet 25 mg PO ONCE PRN Migraine 07/14/25
headaches
tamsulosin 0.4 mg capsule 1 mg PO Daily 07/14/25
metoprolol tartrate 25 mg tablet 37.5 mg (1.5 x 25 mg) PO BID #90 07/17/25
tabs
Review of Systems
Vital Signs
Temp Pulse Resp BP Pulse Ox
98.3 F 75 14 169/99 98
07/22/25 07:38 07/22/25 07:38 07/22/25 07:38 07/22/25 07:38 07/22/25 07:38
Physical Exam
Exam
General: Comfortable
Respiratory: Clear
Cardiac: S1/S2
GI: Soft, Non Tender and Non Distended
Results
WBC 4.4 10^3/uL (4.8-10.8) L 07/22/25 08:59
Hgb 8.4 g/dL (13.0-18.0) L 07/22/25 08:59
Hct 25.1 % (39.0-52.0) L 07/22/25 08:59
MCV 95.4 fL (80.0-94.0) H 07/22/25 08:59
Plt Count 204 10^3/uL (130-400) 07/22/25 08:59
Absolute Neuts (auto) 2.3 10^3/uL (1.4-6.5) 07/19/25 10:39
Sodium 134 mmol/L (135-145) L 07/22/25 13:06
Potassium 3.4 mmol/L (3.5-5.1) L 07/22/25 13:06
Chloride 108 mmol/L (98-107) H 07/22/25 13:06
Carbon Dioxide 24 mmol/L (22-30) 07/22/25 13:06
BUN 16 mg/dl (9-20) 07/22/25 13:06
Creatinine 1.1 mg/dL (0.7-1.3) 07/22/25 13:06
Calcium 8.3 mg/dl (8.4-10.2) L 07/22/25 13:06
Total Bilirubin 0.5 mg/dl (0.2-1.3) 07/19/25 10:39
AST 24 U/L (17-59) 07/19/25 10:39
ALT < 10 U/L (0-50) 07/19/25 10:39
Alkaline Phosphatase 73 U/L (38-126) 07/19/25 10:39
Diagnostic Image Results:
Prior GI Procedures:
EGD:
EGD ([facility], f/u duodenal ulcer- Dr. Hernandez 10/06/2021- Impression: Normal esophagus. Gastritis, biopsied. Normal examined duodenum. Path with gastric reactive gastropathy, (-) H pylori
EGD ([facility], NSAID use- Dr. Henderson) 06/2021- Impression: Normal esophagus, biopsied. Widely patent Schatzki's ring, 2 cm HH. Gastritis, biopsied. Non-bleeding 15 mm clean based duodenal ulcer with no stigmata of bleeding. Otherwise, normal duodenum,
biopsied. Advised a repeat EGD in 3 months given large size of duodenal ulcer to ensure healing. Path with rare eosinophils in esophagus and (-) EoE, gastric biopsies with mild inactive gastritis, (-) H pylori/IM/dysplasia, and duodenal biopsies
with mild reactive change, (-) Celiac
Colonoscopy:
Assessment / Plan
-
84-year-old male with past medical history of hypertension, coronary artery disease, CKD, seizure disorder, chronic anemia, reflux admitted with hip pain/congestion. CT Abdomen performed during this admission was suggestive of possible aspiration
pneumonia. GI was called to evaluate for PEG tube placement since patient failed speech eval. Patient denies any difficulty swallowing food prior to hospital admission. He said he had intermittent dysphagia in the past but no major issues recently.
Barium esophagram 11/2024
FINDINGS/impression:
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
No persistent or reproducible filling defects are identified to indicate retained foreign body within the cervical or thoracic esophagus. No obstruction to passage of liquid barium.
At the level of the gui, a small group of localized traction diverticula are noted measuring up to 1 cm.
There is a large hiatal hernia which is incompletely evaluated. The stomach is underdistended. There is short segment stenosis at the gastroesophageal junction, with maximum perceived luminal diameter of 2.5 mm.
Last EGD 09/[address] Gusman esophagus. Gastritis. Normal duodenum.
plan
Patient is currently awaiting MRI brain to rule out any neurological cause for his sudden deterioration
I had a long discussion with the patient/patient's explaining benefits and risk with gastrostomy placement. I emphasized PEG placement does not reduce the risk of aspiration or improve survival. Patient would like to hold off on EGD/PEG
placement at this point. He says he does not want to have gastrostomy placement as alternative . patient did not want to undergo EGD in the past based on previous record as well for abnormal upper GI findings.
Patient/patient's family interested in repeating speech eval
Aspiration precaution
Continue bowel regimen for constipation
Will sign off. Please call us back if patient is willing to undergo PEG placement or EGD .
Total Time Spent with Patient (in minutes): 55
-
-
Thank you for consultation and allowing me to participate in the patient's care. Please call the concrete form setter GI physician during the after hours with any questions or concerns.
[2025-07-22 15:48] VITALS: BP 148/71
[2025-07-22 20:02] VITALS: BP 155/91
[2025-07-22] MEDS: REMOVE LIDOCAINE PATCH REMOVE (20:09)
[2025-07-22] MEDS: SENNA SYRUP PO (22:19)
[2025-07-22] MEDS: LIPITOR 40 MG PO (22:19)
[2025-07-22 23:24] VITALS: BP 158/87
[2025-07-22] MEDS: TYLENOL 650 MG PO (23:53)
[2025-07-23] MEDS: D5/0.45%NACL 1000 IV (02:26)
[2025-07-23 07:10] VITALS: BP 189/95
[2025-07-23] MEDS: FLOMAX 0.4 MG PO (07:17)
[2025-07-23] MEDS: PROTONIX IV 40 MG IV ×2 (07:17→20:36)
[2025-07-23] MEDS: NSS (PRESERVATIVE FREE) 10 ML IV ×2 (07:17→20:36)
[2025-07-23] MEDS: MIRALAX PO (07:18)
[2025-07-23] MEDS: COLACE PO ×2 (07:19→20:33)
[2025-07-23] MEDS: KEPPRA 500 MG PO ×3 (07:24→22:16)
[2025-07-23] MEDS: COZAAR 25 MG PO (07:24)
[2025-07-23] MEDS: LOPRESSOR 37.5 MG PO ×2 (07:27→20:35)
[2025-07-23 09:32] LABS: Hematocrit 27.6 % (39.0-52.0); Hemoglobin 8.9 g/dL (13.0-18.0); Mean Corp Hgb Conc. 32.2 g/dL (33.0-37.0); Mean Corpuscular Volume 96.2 fL (80.0-94.0); Platelet Count 226 10^3/uL (130-400); Red Cell Dist. Width 16.0 % (11.5-14.5)
[2025-07-23 10:00] LABS: Blood Urea Nitrogen 13 mg/dl (9-20); Calcium 8.2 mg/dl (8.4-10.2); Carbon Dioxide 25 mmol/L (22-30); Chloride 107 mmol/L (98-107); Estimated Creatinine Clearance 42 ml/min; Glucose 102 mg/dl (70-99); Potassium 3.5 mmol/L (3.5-5.1); Sodium 134 mmol/L (135-145); eGFR > 60.00
[2025-07-23 10:20] VITALS: BP 167/89
[2025-07-23] MEDS: UNASYN IV ×2 (11:25→22:16)
--- NOTE | 2025-07-23 12:14 | CM ---
Chart reviewed. CM Spoke with patient at bedside. Plan is to return to [facility] when ready for d/c. Updated referral sent in [facility] to [facility].
Plan: [facility]
--- NOTE | 2025-07-23 13:19 | W.PN.HOSP.TC ---
Today's Communication/Plan
-
Regular diet
Monitor for diet tolerance
IV antibiotics for now
start Disposition to SNF
Assessment / Plan
Assessment / Plan
General: No Apparent Distress and Comfortable
HEENT: Normocephalic and Atraumatic
Respiratory: Rhonchi
Cardiac: Regular Rhythm and S1/S2
GI: Soft, Nontender, Nondistended and Normal Bowel Sounds
Musculoskeletal: No Clubbing, No Cyanosis and No Edema
Neuro: Awake and AO x 3
Right upper lobe pneumonia
Unasyn
Provide aspiration precautions
Aspiration pneumonia
Unasyn
Speech therapy�n.p.o./medications pur�ed
Repeat video swallow evaluation ordered.
?Dysphagia
Swallow eval
Mri brain negative for acute CVA
GI evaluated patient who discussed in detail with patient and family. Please see GI correspondence for further details.
Repeat video swallow evaluation for further discussion-patient did well with repeat video swallow evaluation. Per speech okay for clear diet for now.
Right hip pain
PT OT
Constipation fecal impaction
Colace senna MiraLAX
Acute on chronic anemia
Without acute bleeding
For SNF when ready for DC
Anticipated Discharge: Within 24 hours
Subjective/Interval History
-
Date of Service: July 23, 2025
pt wants to eat
agreed for further testing
Objective Data
-
Labs:
Laboratory Results
07/23/25
09:21
WBC 4.7 L
Hgb 8.9 L
Hct 27.6 L
Plt Count 226
Sodium 134 L
Potassium 3.5
Chloride 107
Carbon Dioxide 25
BUN 13
Creatinine 1.1
Glucose 102 H
Calcium 8.2 L
Vital Signs:
Vital Signs
Temp Pulse Resp BP Pulse Ox
97.8 F 64 16 167/89 99
07/23/25 07:10 07/23/25 10:20 07/23/25 07:10 07/23/25 10:20 07/23/25 07:10
I&O
07/22/25 07/23/25 07/24/25
06:59 06:59 06:59
Intake Total 945 / 945 975 / 975
Output Total 800 / 800 1100 / 1100
Balance 145 / 145 -125 / -125
Data Reviewed
-
Total Time Spent with Patient (in minutes): 55
[2025-07-23] MEDS: TYLENOL 650 MG PO (13:47)
--- NOTE | 2025-07-23 14:40 | CM ---
Addendum entered by Lita Valdivia 07/23/25 15:50:
SPoke with patient's - patient is now agreeable to SNF placement at [facility]
Original Note:
Chart reviewed. CM met with patient and his at bedside. Discussed PT/OT recommendation for SNF. Patient had previously been agreeable to return to [facility] upon d/c, but he is now refusing SNF and wants to return home upon d/c. His
is concerned about being able to manage his care at home. CM also received call from patient's daughter, Alexandria who expressed concern about patient returning home upon d/c. Daughter also feels that patient needs SNF upon d/c. Patient agreed to
continue to working with PT/OT while in the hospital and agreed to continue discussion re home vs. SNF. CM will follow up with patient and on 07/24. [facility] has accepted patient is he is agreeable.
Plan: SNF is patient agrees.
--- NOTE | 2025-07-23 14:56 | PTOTSP ---
Speech Therapy VSE:
Functional oral phase. Mild pharyngeal dysphagia. No aspiration observed across study, however risk present with moderate pharyngeal retention that was observed to descend towards airway posteriorly from pyriform sinuses. An immediate dry swallow
following liquids was most effective at clearing pyriform sinus residue and therefore reducing, but not eliminating risk of aspiration. Performance on this study shows improvement in swallow function compared to initial study completed 07/20.
Recommend:
1. Regular solids and thin liquids with immediate dry swallow following sips of liquid
2. Medications as best tolerated
3. Strict aspiration precautions: Single sips, slow rate, immediate dry swallows following liquids
4. Modifiable risk factors for aspiration pneumonia including encouraging frequent and thorough oral care, pulmonary hygiene measures, and increasing physical mobility as medically feasible
5. TYPE CUTTER to follow for education regarding VSE findings and recommendations and to monitor tolerance of diet s/p reinitiation
[2025-07-23 15:10] VITALS: BP 131/77
[2025-07-23] MEDS: STERILE WATER FOR INJECTION IV (17:07)
[2025-07-23] MEDS: REMOVE LIDOCAINE PATCH REMOVE (21:00)
[2025-07-23] MEDS: D5/0.45%NACL IV (22:13)
[2025-07-23] MEDS: LIPITOR 40 MG PO (22:16)
[2025-07-23] MEDS: SENNA SYRUP PO (22:16)
[2025-07-23 23:34] VITALS: BP 163/91
--- NOTE | 2025-07-24 03:29 | PTCARENOTE ---
TT to [employer] MEMBER covering house to clarify IVF. Pt now on diet, + PO intake. Instructed to ok to d/c IVF and encourage PO intake. Awaiting d/c in [facility].
[2025-07-24 07:10] VITALS: BP 171/84
[2025-07-24] MEDS: MIRALAX 17 GRAMS PO (07:46)
[2025-07-24] MEDS: COLACE 100 MG PO (07:46)
[2025-07-24] MEDS: PROTONIX IV 40 MG IV (07:46)
[2025-07-24] MEDS: FLOMAX 0.4 MG PO (07:46)
[2025-07-24] MEDS: COZAAR 25 MG PO (07:46)
[2025-07-24] MEDS: NSS (PRESERVATIVE FREE) 10 ML IV (07:46)
[2025-07-24] MEDS: KEPPRA 500 MG PO (07:46)
[2025-07-24] MEDS: LOPRESSOR 37.5 MG PO (07:48)
[2025-07-24 09:29] LABS: Hematocrit 30.1 % (39.0-52.0); Hemoglobin 10.1 g/dL (13.0-18.0); Mean Corp Hgb Conc. 33.6 g/dL (33.0-37.0); Mean Corpuscular Volume 94.4 fL (80.0-94.0); Platelet Count 257 10^3/uL (130-400); Red Cell Dist. Width 15.7 % (11.5-14.5)
[2025-07-24 10:07] LABS: Blood Urea Nitrogen 15 mg/dl (9-20); Calcium 8.4 mg/dl (8.4-10.2); Carbon Dioxide 23 mmol/L (22-30); Chloride 106 mmol/L (98-107); Estimated Creatinine Clearance 39 ml/min; Glucose 100 mg/dl (70-99); Potassium 3.5 mmol/L (3.5-5.1); Sodium 135 mmol/L (135-145); eGFR > 60.00
[2025-07-24] MEDS: UNASYN IV (11:10)
--- NOTE | 2025-07-24 11:24 | W.PN.HOSP.TC ---
Today's Communication/Plan
-
Trial of voiding at alf facility
P.o. antibiotic
Regular diet
Assessment / Plan
Assessment / Plan
General: No Apparent Distress and Comfortable
HEENT: Normocephalic and Atraumatic
Respiratory: Rhonchi
Cardiac: Regular Rhythm and S1/S2
GI: Soft, Nontender, Nondistended and Normal Bowel Sounds
Musculoskeletal: No Clubbing, No Cyanosis and No Edema
Neuro: Awake and AO x 3
#Right upper lobe pneumonia suspected aspiration pneumonia
Unasyn
Provide aspiration precautions
Repeat video swallow evaluation ordered and okay for regular diet.
?Dysphagia
Swallow eval
Mri brain negative for acute CVA
GI evaluated patient who discussed in detail with patient and family. Please see GI correspondence for further details.
Repeat video swallow evaluation for further discussion-patient did well with repeat video swallow evaluation. Per speech okay for regular diet for now.
Right hip pain
PT OT recs SNF
Constipation fecal impaction
Colace senna MiraLAX
Acute on chronic anemia
Without acute bleeding
Hx of urinary retention
Trial of voiding at the alf facility once patient is more ambulatory
Continue with Flomax
For SNF when ready for DC
More than 30 minutes spent in discharge including
Final examination of the patient
Summarizing hospital stay
Instructions for continuing care to all relevant caregivers
Preparation of discharge records, prescriptions, and referral forms
Total time spent (in minutes): 55
Anticipated Discharge: Today
Subjective/Interval History
-
Date of Service: July 24, 2025
Patient is tolerating diet well.
States he is happy he is able to eat once again without any restriction.
Objective Data
-
Labs:
Laboratory Results
07/24/25
09:02
WBC 7.1
Hgb 10.1 L
Hct 30.1 L
Plt Count 257
Sodium 135
Potassium 3.5
Chloride 106
Carbon Dioxide 23
BUN 15
Creatinine 1.2
Glucose 100 H
Calcium 8.4
Vital Signs:
Vital Signs
Temp Pulse Resp BP Pulse Ox
97.6 F 75 18 171/84 98
07/24/25 07:10 07/24/25 07:10 07/24/25 07:10 07/24/25 07:10 07/24/25 07:10
I&O
07/23/25 07/24/25 07/25/25
06:59 06:59 06:59
Intake Total 975 / 975 480 / 480
Output Total 1100 / 1100 250 / 250
Balance -125 / -125 230 / 230
--- NOTE | 2025-07-24 11:26 | W.DCSUMMARY ---
Discharge Summary
Discharge Data
Date of Admission: 07/19/25
Date of Discharge: 07/24/25
-
Pending Results: No
Hospital Course
84-year-old male past medical history of CAD, hypertension, right bundle branch block, CKD 3B, polycystic kidney disease, chronic anemia, urinary retention with chronic Weathers, constipation, seizure disorder, GERD, presenting with right hip pain. Hip
x-ray shows no acute abnormality. �CT abdomen pelvis shows moderate right lower lobe mild right upper lobe pneumonia probably aspiration pneumonia which has progressed. �There is large amount of fecal material in the rectum. Bowel regimen is high
patient was having bowel movements. Patient was on IV antibiotics. Patient was eval by speech initially recommended strict NPO. Patient was started on IV fluids. Patient with significant improvement in overall status. Repeat video swallow study
was performed and per speech patient can have regular diet. IV antibiotic with transition to p.o. on discharge. Patient was seen by physical and Occupational Therapy recommend [facility] facility. Patient and family agreed. Recommended
Weathers catheter trial of voiding once patient is more ambulatory at [facility] facility.
Discharge Plan
-
Patient Disposition: Care Home/SNF
Discharge Diagnosis/Procedures: Right upper lobe pneumonia
Aspiration pneumonia
Condition: Fair
Diet: Regular
Activity: As tolerated
Driving Restrictions: Not until seen by your Dr
Activity Restrictions/Additional Instructions:
Recommend trial of voiding for Weathers catheter once patient more ambulatory at [facility] facility.
Referrals:
Bianca Sanchez MD [Active, Urology]
UNKNOWN - PT DOES,NOT KNOW [Family Provider]
Prescriptions:
New
amoxicillin-pot clavulanate 875-125 mg tablet
1 tab PO BID Qty: 6 0RF
Continued
levetiracetam 500 MG tablet
500 mg PO TID
atorvastatin 40 MG tablet
40 mg PO HS
losartan 25 mg Tablet
25 mg PO DAILY
docusate sodium 100 mg Capsule
100 mg PO BID Qty: 0 0RF
lidocaine 4 % Adhesive Patch,Medicated
1 patch TOPICAL DAILY
Rx Instructions:
Appky to R thoracic back topically one time a day for chronic pain and remove per schedule
tamsulosin 0.4 mg Capsule
1 mg PO Daily
azelastine 137 mcg (0.1 %) [place],Non-Aerosol
1 spray INTRANASAL BID
sennosides [Senna Lax] 8.6 mg tablet
17.2 mg PO DAILY
polyethylene glycol 3350 17 gram Powder In Packet
17 g PO DAILY
omeprazole 20 mg Capsule,Delayed Release(Dr/Ec)
20 mg PO DAILY
acetaminophen 325 mg Tablet
650 mg PO Q4H PRN (Reason: temp > 100.5)
sumatriptan succinate 25 mg Tablet
25 mg PO ONCE PRN (Reason: Migraine headaches)
Rx Instructions:
may repeat dose after 2 hours if no relief. No more than 2 doses in 24 hours
olanzapine 2.5 mg Tablet
2.5 mg PO DAILY PRN (Reason: Anxiety)
magnesium hydroxide [Milk of Magnesia] 400 mg/5 mL Suspension
30 ml PO DAILY PRN (Reason: no BM x 3 days)
bisacodyl 10 mg Suppository
10 mg CO ONCE PRN (Reason: No BM x 4 days)
Fleet Enema 19-7 gram/118 mL Enema
118 ml CO ONCE PRN (Reason: no bm x 5 days)
metoprolol tartrate 25 mg Tablet
37.5 mg PO BID Qty: 90 0RF
Discharge Orders:
Discharge Patient (As Directed); Ordered 07/24/25
Ordered By: Tello Zhu
Discharge Date and Time
Print Language: GREEK
--- NOTE | 2025-07-24 12:38 | CM ---
Patient is being transferred to [facility] today. he has a 6pm wheelchair van garbage pick up man scheduled. Discussed transferr arrangements with patient and his . IMM given.
[facility]
phone# for Nurse Report: [phone]

Plan: transfer to [facility] today.
[2025-07-24 13:11] VITALS: BP 153/76
== END 2025-07-24 16:50 | DRG 178 ==
LOC: 4 WEST ACU 13:45
PROVIDERS: Hospitalist; Physician Assistant; Registered Nurse; ADMITTING PHYSICIAN Hospitalist; ATTENDING PHYSICIAN Hospitalist; CONSULT PHYSICIAN Internal Medicine Gastroenterology; EMERGENCY PHYSICIAN Emergency Medicine
DX: J69.0 Pneumonitis due to inhalation of food and vomit (principal); Q61.3 Polycystic kidney, unspecified; I25.10 Atherosclerotic heart disease of native coronary artery without angina pectoris; N18.32 Chronic kidney disease, stage 3b; I10 Essential (primary) hypertension; M25.551 Pain in right hip; I45.10 Unspecified right bundle-branch block; G44.009 Cluster headache syndrome, unspecified, not intractable; K22.89 Other specified disease of esophagus; R13.14 Dysphagia, pharyngoesophageal phase; K59.00 Constipation, unspecified; G40.909 Epilepsy, unspecified, not intractable, without status epilepticus; R33.9 Retention of urine, unspecified; K21.9 Gastro-esophageal reflux disease without esophagitis; D50.9 Iron deficiency anemia, unspecified; Z66 Do not resuscitate; Z96.643 Presence of artificial hip joint, bilateral; I25.2 Old myocardial infarction; Z95.5 Presence of coronary angioplasty implant and graft; Z90.49 Acquired absence of other specified parts of digestive tract; Z79.899 Other long term (current) drug therapy; Z91.81 History of falling
CPT/HCPCS: 51798; 70551; 73502; 74176; 74230; 80048; 80053; 81003; 81015; 84145; 85025; 85027; 86850; 86900; 86901; 87086; 87449; 87502; 87811; 87899; 92526; 92611; 96365; 96375; 97162; 97167; 99285